=== PATIENT | female | born 1975 | race Caucasian/White ===

== ENCOUNTER 2016-07-03 11:34 | Emergency (ER) | payer OTHER ==
[2016-07-03 11:43] VITALS: BP 113/62; PULSE 72; TEMP 97.8; BMI 29.5
[2016-07-03] MEDS ORDERED: predniSONE 20 MG TABLET (UD) ONE (12:33)
[2016-07-03] MEDS ORDERED: predniSONE 20 MG TABLET (UD) PO ONE (12:33)
[2016-07-03] MEDS ORDERED: ALBUTEROL SO4 2.5/IPRATROPIUM 0.5 INH SOL 3 ML VIAL.NEB. NEB ONE ×2 (12:33)
--- NOTE | 2016-07-03 13:06 | PDOC ---
History of Present Illness - General Chief Complaint: Asthma Stated Complaint: SOB (ASTHMA) Time Seen by Provider: 07/03/16 12:00 History Source: Patient Exam Limitations: No Limitations - History of Present Illness Initial Comments: 07/03/16 13:03 CC asthma attack x 2-3 days Timing/Duration: reports: just prior to arrival Severity: reports: mild Modifying Factors: improves with: albuterol inhaler, albuterol nebulizer Associated Symptoms: denies: fever/chills, muscle aches, shortness of breath Past History - Past Medical History Allergies/Adverse Reactions: Allergies Allergy/AdvReac Type Severity Reaction Status Date / Time Penicillins Allergy Hives Verified 07/03/16 11:43 Home Medications: Ambulatory Orders NK [No Known Home Medication] 07/03/16 Anemia: No Asthma: Yes Cancer: No Cardiac Disorders: No CVA: No COPD: No CHF: No Dementia: No Diabetes: No GI Disorders: No Disorders: No HTN: No Hypercholesterolemia: No Liver Disease: No Psychiatric Problems: Yes Seizures: No Thyroid Disease: No - Surgical History Abdominal Surgery: No Appendectomy: No Cardiac Surgery: No Cholecystectomy: No Lung Surgery: No Neurologic Surgery: No Orthopedic Surgery: Yes (L WRIST GANGLION CYSTECTOMY) - Immunization History Immunization Up to Date: Yes - Psycho/Social/Smoking Cessation Hx Anxiety: No Suicidal Ideation: No Smoking History: Current some day smoker Have you smoked in the past 12 months: Yes Number of Cigarettes Smoked Daily: 2 If you are a former smoker, when did you quit?: 10/31/13 Information on smoking cessation initiated: No 'Breaking Loose' booklet given: 01/03/14 Hx Alcohol Use: No Drug/Substance Use Hx: No Substance Use Type: None Hx Substance Use Treatment: No Review of Systems - Review of Systems Constitutional: No: Symptoms Reported, Fever, Loss of Appetite, Malaise HEENTM: Yes: Nose Pain, Nose Congestion. No: Symptoms Reported, Hearing Loss, Throat Swelling Respiratory: Yes: Wheezing. No: Symptoms reported, Cough Cardiac (ROS): No: Symptoms Reported ABD/GI: No: Symptoms Reported *Physical Exam - Vital Signs Last Vital Signs Temp Pulse Resp BP Pulse Ox 97.8 F 72 20 113/62 97 07/03/16 11:41 07/03/16 11:41 07/03/16 11:41 07/03/16 11:41 07/03/16 11:41 - Physical Exam General Appearance: Yes: Appropriately Dressed. No: Apparent Distress HEENT: positive: TMs Normal, Pharynx Normal, Nasal Congestion, Rhinorrhea. negative: Tonsillar Exudate, Tonsillar Erythema, TM Bulging, TM Dull, TM Erythema Neck: positive: Supple, Lymphadenopathy (R), Lymphadenopathy (L). negative: Tender, Rigid Respiratory/Chest: positive: Lungs Clear, Wheezing Cardiovascular: positive: Regular Rhythm, Regular Rate. negative: Murmur ED Treatment Course - Medications Given in the ED: ED Medications Discontinued Medications Generic Name Dose Route Start Last Admin Trade Name Freq PRN Reason Stop Dose Admin Albuterol/Ipratropium 1 amp 07/03/16 12:33 07/03/16 12:36 Duoneb - NEB 07/03/16 12:34 1 amp ONCE ONE Administration Prednisone 60 mg 07/03/16 12:33 07/03/16 12:36 Deltasone - PO 07/03/16 12:34 60 mg ONCE ONE Administration Medical Decision Making - Medical Decision Making 07/03/16 13:05 asthma attack *DC/Admit/Observation/Transfer Diagnosis at time of Disposition: Exacerbation of asthma - Discharge Dispostion Disposition: HOME Condition at time of disposition: Stable Admit: No - Patient Instructions Additional Instructions: return for increased symptoms; see local MD next week
== END 2016-07-03 13:12 | disposition home or self-care (01) ==
LOC: JERFT 11:34
PROC: 3E0F7GC Introduction of Other Therapeutic Substance into Respiratory Tract, Via Natural or Artificial Opening (ICD-10-PCS; principal; 2016-07-03)
DX: J45.901 Unspecified asthma with (acute) exacerbation (principal); F99 Mental disorder, not otherwise specified; Z87.891 Personal history of nicotine dependence
CPT/HCPCS: 94640; 99281-25

== ENCOUNTER 2016-08-15 09:17 | Emergency (ER) | payer OTHER ==
[2016-08-15 09:21] VITALS: BP 114/72; PULSE 105; TEMP 97.9; BMI 29.5
[2016-08-15] MEDS ORDERED: ALBUTEROL SO4 2.5/IPRATROPIUM 0.5 INH SOL 3 ML VIAL.NEB. NEB ONE (09:40)
[2016-08-15] MEDS ORDERED: predniSONE 20 MG TABLET (UD) PO ONE (10:05)
--- NOTE | 2016-08-15 10:05 | PDOC ---
History of Present Illness - General Chief Complaint: Cold Symptoms Stated Complaint: SOB, COUGH,Asthma Time Seen by Provider: 08/15/16 09:20 History Source: Patient - History of Present Illness Timing/Duration: reports: other Associated Symptoms: reports: shortness of breath, wheezing. denies: cough Past History - Past Medical History Allergies/Adverse Reactions: Allergies Allergy/AdvReac Type Severity Reaction Status Date / Time Penicillins Allergy Hives Verified 08/15/16 09:22 Home Medications: Ambulatory Orders Albuterol Sulfate Inhaler - [Ventolin HFA Inhaler -] 2 inh PO Q4H #1 inh Lamotrigine [Lamictal -] 300 mg PO DAILY 08/14/16 [place] Carbonate [Eskalith -] 900 mg PO BID 08/14/16 Quetiapine Fumarate [Seroquel -] 400 mg PO HS 08/14/16 Sertraline HCl [Zoloft -] 200 mg PO DAILY 08/14/16 Prednisone [Deltasone -] 40 mg PO DAILY #6 tablet 08/15/16 Anemia: No Asthma: Yes Cancer: No Cardiac Disorders: No CVA: No COPD: No CHF: No Dementia: No Diabetes: No GI Disorders: No Disorders: No HTN: No Hypercholesterolemia: No Liver Disease: No Psychiatric Problems: Yes Seizures: No Thyroid Disease: No - Surgical History Abdominal Surgery: No Appendectomy: No Cardiac Surgery: No Cholecystectomy: No Lung Surgery: No Neurologic Surgery: No Orthopedic Surgery: Yes (L WRIST GANGLION CYSTECTOMY) - Immunization History Immunization Up to Date: Yes - Psycho/Social/Smoking Cessation Hx Anxiety: No Suicidal Ideation: No Smoking History: Never smoked Have you smoked in the past 12 months: Yes Number of Cigarettes Smoked Daily: 2 If you are a former smoker, when did you quit?: 10/31/13 Information on smoking cessation initiated: No 'Breaking Loose' booklet given: 08/14/16 Hx Alcohol Use: No Drug/Substance Use Hx: No Substance Use Type: None Hx Substance Use Treatment: No Review of Systems - Review of Systems Constitutional: No: Chills, Fever Respiratory: Yes: Shortness of Breath, Wheezing. No: Cough *Physical Exam - Vital Signs Last Vital Signs Temp Pulse Resp BP Pulse Ox 97.9 F 105 H 19 114/72 96 08/15/16 09:19 08/15/16 09:19 08/15/16 09:19 08/15/16 09:19 08/15/16 09:19 - Physical Exam General Appearance: Yes: Appropriately Dressed. No: Apparent Distress HEENT: positive: Normal Voice. negative: Scleral Icterus (R), Scleral Icterus ( L) Neck: positive: Supple Respiratory/Chest: positive: Wheezing. negative: Respiratory Distress Cardiovascular: positive: S1, S2, Tachycardia Integumentary: positive: Dry, Warm Neurologic: positive: Fully Oriented, Alert, Normal Mood/Affect Medical Decision Making - Medical Decision Making 08/15/16 10:02 40-year-old female history of bipolar, asthma with frequent exacerbations, uses pump and machine at home, multiple admissions and reports 2 intubations, last time 4 years ago, was seen in ED yesterday for asthma exacerbation but eloped after multiple rounds of nebs and steroids. Did not stay for rx for steroids. Patient did have labs drawn and CXR done that were negative. Patient returns today with persistent symptoms. States medications not helping at home. States she eloped last night because she had things to do. See exam Asthma flare Stable +wheezing on exam -nebs -pred -reassess 08/15/16 10:47 Patient reports some improvement but still wheezing on exam. Additional nebs and/or mag w/ possible obs admission offered to patient. The patient refuses at this time. Wants to go home on prednisone and follow up with her doctor tomorrow. 08/15/16 10:47 *DC/Admit/Observation/Transfer Diagnosis at time of Disposition: Asthma attack - Discharge Dispostion Disposition: HOME Condition at time of disposition: Improved - Prescriptions Prescriptions: Prednisone [Deltasone -] 40 mg PO DAILY #6 tablet - Referrals Referrals: Ceci Huston MD [Primary Care Provider] - - Patient Instructions Additional Instructions: Take medications as prescribed and follow-up with your doctor tomorrow. If symptoms worsen, return to ER immediately
[2016-08-15] MEDS ORDERED: ALBUTEROL SO4 2.5/IPRATROPIUM 0.5 INH SOL 3 ML VIAL.NEB. NEB SCH (10:15)
== END 2016-08-15 10:50 | disposition home or self-care (01) ==
LOC: JERFT 09:17
PROC: 3E0F7GC Introduction of Other Therapeutic Substance into Respiratory Tract, Via Natural or Artificial Opening (ICD-10-PCS; principal; 2016-08-15)
PROC: 3E0F7GC Introduction of Other Therapeutic Substance into Respiratory Tract, Via Natural or Artificial Opening (ICD-10-PCS; 2016-08-15)
DX: J45.901 Unspecified asthma with (acute) exacerbation (principal); F31.9 Bipolar disorder, unspecified
CPT/HCPCS: 99281-25

== ENCOUNTER 2016-12-08 08:55 | Emergency (ER) | payer OTHER ==
[2016-12-08 09:01] VITALS: BP 125/72; PULSE 82; TEMP 98.2; BMI 29.5
[2016-12-08] MEDS ORDERED: KETOROLAC TROMETHAMINE 60 MG/2 ML VIAL IM ONE (09:21)
--- NOTE | 2016-12-08 09:23 | PDOC ---
History of Present Illness - General Chief Complaint: Pain Stated Complaint: NECK PAIN Time Seen by Provider: 12/08/16 09:18 History Source: Patient Exam Limitations: No Limitations - History of Present Illness Initial Comments: 12/08/16 09:22 41 yr female with neck pain for 1 days, denies fever no trauma. Pt has history of disc disease in her neck. Pt denies numbness or tingling to the arms. Pt states she woke up with neck stiffness. Pt took no meds for pain. 12/08/16 11:23 Past History - Past Medical History Allergies/Adverse Reactions: Allergies Allergy/AdvReac Type Severity Reaction Status Date / Time Penicillins Allergy Hives Verified 12/08/16 08:57 Home Medications: Ambulatory Orders Lamotrigine [Lamictal -] 300 mg PO DAILY 08/14/16 [place] Carbonate [Eskalith -] 900 mg PO BID 08/14/16 Quetiapine Fumarate [Seroquel -] 400 mg PO HS 08/14/16 Sertraline HCl [Zoloft -] 200 mg PO DAILY 08/14/16 Diazepam [Valium] 5 mg PO Q8H PRN #15 tablet MDD 15mg 12/08/16 Naproxen [Naprosyn -] 500 mg PO BID PRN #14 tablet 12/08/16 Anemia: No Asthma: Yes Cancer: No Cardiac Disorders: No CVA: No COPD: No CHF: No Dementia: No Diabetes: No GI Disorders: No Disorders: No HTN: No Hypercholesterolemia: No Liver Disease: No Psychiatric Problems: Yes (ptsd,bipolar,DID ( DISSOCIATIVE IDENTITY D/O)) Seizures: No Thyroid Disease: No - Surgical History Abdominal Surgery: Yes (tubal ligation,ovary removal and mass) Appendectomy: No Cardiac Surgery: No Cholecystectomy: No Lung Surgery: No Neurologic Surgery: No Orthopedic Surgery: Yes (L WRIST GANGLION CYSTECTOMY) - Immunization History Immunization Up to Date: Yes - Psycho/Social/Smoking Cessation Hx Anxiety: No Suicidal Ideation: No Smoking History: Current every day smoker Have you smoked in the past 12 months: Yes Number of Cigarettes Smoked Daily: 20 If you are a former smoker, when did you quit?: 10/31/13 Information on smoking cessation initiated: Yes 'Breaking Loose' booklet given: 12/08/16 Hx Alcohol Use: No Drug/Substance Use Hx: No Substance Use Type: None Hx Substance Use Treatment: No Review of Systems - Review of Systems Able to Perform ROS?: Yes Is the patient limited Persian proficient: No Constitutional: No: Symptoms Reported HEENTM: No: Symptoms Reported Respiratory: No: Symptoms reported Cardiac (ROS): No: Symptoms Reported ABD/GI: No: Symptoms Reported : No: Symptoms Reported Musculoskeletal: Yes: Symptoms Reported, Neck Pain *Physical Exam - Vital Signs Last Vital Signs Temp Pulse Resp BP Pulse Ox 98.2 F 82 18 125/72 100 12/08/16 08:57 12/08/16 08:57 12/08/16 08:57 12/08/16 08:57 12/08/16 08:57 - Physical Exam General Appearance: Yes: Nourished, Appropriately Dressed HEENT: positive: EOMI, MANAV, Normal ENT Inspection, TMs Normal, Pharynx Normal Neck: positive: Supple, Decreased range of motion, Tender lateral. negative: Lymphadenopathy (R), Lymphadenopathy (L), Rigidity, Tender midline Respiratory/Chest: positive: Lungs Clear, Normal Breath Sounds Cardiovascular: positive: Regular Rhythm, Regular Rate Gastrointestinal/Abdominal: positive: Normal Bowel Sounds, Soft Extremity: positive: Normal Capillary Refill, Normal Inspection, Normal Range of Motion, Other (FROM bilateral arms no weakness). negative: Tender Integumentary: positive: Normal Color, Dry, Warm Neurologic: positive: Fully Oriented, Alert, Normal Mood/Affect, Normal Response , Motor Strength 5/5 Medical Decision Making - Medical Decision Making 12/08/16 11:24 cc: acute on chronic neck pain laterally woke up with this (I have reviewed EMR and imaging studies ) will give valium and naprosyn, will give toradol now pt agrees with plan is asking for a neurologist to follow up with. pt did not drive here will give valium now pt agrees with plan and the follow up plan. *DC/Admit/Observation/Transfer Diagnosis at time of Disposition: Neck muscle spasm - Discharge Dispostion Disposition: HOME Condition at time of disposition: Improved - Prescriptions Prescriptions: Naproxen [Naprosyn -] 500 mg PO BID PRN #14 tablet PRN Reason: Pain Diazepam [Valium] 5 mg PO Q8H PRN #15 tablet MDD 15mg PRN Reason: Muscle Spasms - Referrals Referrals: Ceci Huston MD [Primary Care Provider] - Momo Robbins MD [Staff Physician] - - Patient Instructions Additional Instructions: follow with the neurologist take the medication as prescribed DO NOT DRIVE, OPERATE MACHINERY OR DRINK ALCOHOL WHILE TAKING VALIUM avoid texting, typing anything that worsens the pain in your neck apply warm compresses, heating pad, lie flat without a pillow in your bed this can help with relieving spasm return if worse
[2016-12-08] MEDS ORDERED: KETOROLAC TROMETHAMINE 60 MG/2 ML VIAL ONE (09:25)
[2016-12-08] MEDS ORDERED: diazePAM 5 MG TABLET PO ONE (09:33)
[2016-12-08] MEDS ORDERED: diazePAM 5 MG TABLET ONE (09:38)
== END 2016-12-08 09:44 | disposition home or self-care (01) ==
LOC: JERFT 08:55
PROC: 3E0233Z Introduction of Anti-inflammatory into Muscle, Percutaneous Approach (ICD-10-PCS; principal; 2016-12-08)
DX: M50.30 Other cervical disc degeneration, unspecified cervical region (principal); M62.838 Other muscle spasm; F43.10 Post-traumatic stress disorder, unspecified; F31.9 Bipolar disorder, unspecified; F44.81 Dissociative identity disorder
CPT/HCPCS: 96372; 99281-25

== ENCOUNTER 2017-03-21 08:54 | Emergency (ER) | payer OTHER ==
[2017-03-21 09:00] VITALS: BP 135/78; PULSE 96; TEMP 98.7; BMI 29.5
[2017-03-21] MEDS ORDERED: ALBUTEROL SO4 2.5/IPRATROPIUM 0.5 INH SOL 3 ML VIAL.NEB. NEB ONE ×2 (09:31→09:33)
[2017-03-21] MEDS ORDERED: KETOROLAC TROMETHAMINE 60 MG/2 ML VIAL IM ONE (09:31)
[2017-03-21] MEDS ORDERED: KETOROLAC TROMETHAMINE 60 MG/2 ML VIAL ONE (09:33)
--- NOTE | 2017-03-21 10:40 | PDOC ---
History of Present Illness - General Chief Complaint: Back Pain Stated Complaint: BACK PAIN, SOB Time Seen by Provider: 03/21/17 09:16 History Source: Patient Exam Limitations: No Limitations - History of Present Illness Initial Comments: 03/21/17 18:09 CHIEF COMPLAINT: Lower back pain and wheezing since last night HISTORY OF PRESENT ILLNESS: 41-year-old female, history of asthma currently takes albuterol however ran out presents to the emergency department with wheezing also complaining of generalized lower back pain. Nonradiating pain, no neurosensory deficits, no bowel or bladder difficulty incontinence or urinary retention, no saddle anesthesia, no footdrop. No history of IVDU or history of cancer. Patient reports that back pain started after squatting 325 lbs yesterday. Normally benches 279 and felt that she can lift more today had no difficulty doing so however developed pain to generalized lower back afterwards. REVIEW OF SYSTEMS: GENERAL: Afebrile, denies any weakness RESPIRATORY: No cough, wheezing, or hemoptysis. CARDIAC: No chest pain or shortness of breath MUSCULOSKELETAL: Pain to generalized lower back. No point tenderness. Pain worse on right than left. SKIN : No erythema, no bruising, no deformity. GI/: Denies any abdominal pain, no urinary difficulty, incontinence or urinary retention. RECTAL: Denies any difficulty this A.m. NEUROLOGICAL: Denies any numbness or tingling. No neurosensory deficits. PHYSICAL EXAM: GENERAL: The patient is awake, alert, and fully oriented, in no acute distress. RESPIRATORY: Lungs clear bilaterally, no rhonchi, wheezing cleared with cough CARDIAC: S1-S2 audible, no murmur rub or gallop MUSCULOSKELETAL: Pain to generalized lower back, nonradiating, no tingling or sensory deficit. Less than 2 second cap refill, +4 popliteal and pedal pulses. GI/: Abdomen soft, nontender, nondistended. No rebound tenderness. No masses palpable. MUSCULOSKELETAL: No spinal point tenderness. Normal reflexive and no deficits to sensation or strength. RECTAL: Normal Rectal Tone. SKIN: Warm, Dry, normal turgor, no erythema, no edema no bruising. Past History - Past Medical History Allergies/Adverse Reactions: Allergies Allergy/AdvReac Type Severity Reaction Status Date / Time Penicillins Allergy Hives Verified 03/21/17 08:55 Home Medications: Ambulatory Orders Lamotrigine [Lamictal -] 300 mg PO DAILY 08/14/16 [place] Carbonate [Eskalith -] 900 mg PO BID 08/14/16 Quetiapine Fumarate [Seroquel -] 400 mg PO HS 08/14/16 Sertraline HCl [Zoloft -] 200 mg PO DAILY 08/14/16 Albuterol Sulfate Inhaler - [Ventolin HFA Inhaler -] 1 - 2 inh PO Q4H #1 inhaler 03/21/17 Cyclobenzaprine HCl [Flexeril 10 mg] 10 mg PO BID PRN #20 tablet MDD 2 03/21/17 Ibuprofen [Motrin -] 600 mg PO QID #28 tablet 03/21/17 Anemia: No Asthma: Yes Cancer: No Cardiac Disorders: No CVA: No COPD: No CHF: No Dementia: No Diabetes: No GI Disorders: No Disorders: No HTN: No Hypercholesterolemia: No Liver Disease: No Psychiatric Problems: Yes (ptsd,bipolar,DID ( DISSOCIATIVE IDENTITY D/O)) Seizures: No Thyroid Disease: No - Surgical History Abdominal Surgery: Yes (tubal ligation,ovary removal and mass) Appendectomy: No Cardiac Surgery: No Cholecystectomy: No Lung Surgery: No Neurologic Surgery: No Orthopedic Surgery: Yes (L WRIST GANGLION CYSTECTOMY) - Immunization History Immunization Up to Date: Yes - Suicide/Smoking/Psychosocial Hx Smoking History: Never smoked Have you smoked in the past 12 months: No Number of Cigarettes Smoked Daily: 20 If you are a former smoker, when did you quit?: 10/31/13 Information on smoking cessation initiated: No 'Breaking Loose' booklet given: 12/08/16 Hx Alcohol Use: No Drug/Substance Use Hx: No Substance Use Type: None Hx Substance Use Treatment: No *Physical Exam - Vital Signs Last Vital Signs Temp Pulse Resp BP Pulse Ox 98.7 F 96 H 20 135/78 96 03/21/17 08:54 03/21/17 08:54 03/21/17 08:54 03/21/17 08:54 03/21/17 08:54 ED Treatment Course - Medications Given in the ED: ED Medications Discontinued Medications Generic Name Dose Route Start Last Admin Trade Name Freq PRN Reason Stop Dose Admin Albuterol/Ipratropium 1 amp 03/21/17 09:31 03/21/17 09:42 Duoneb - NEB 03/21/17 09:32 1 amp ONCE ONE Administration Ketorolac Tromethamine 60 mg 03/21/17 09:31 03/21/17 09:42 Toradol Injection - IM 03/21/17 09:32 60 mg ONCE ONE Administration Medical Decision Making - Medical Decision Making 03/21/17 18:11 A/P: Patient here for evaluation of lower back pain and wheezing. Patient given treatment, Combivent given wheezing cleared. Patient with no radiating pain, no neurological deficits. Toradol 60 mg IM given with good result patient reports that she has no pain after medication. Patient discharged on Ventolin, Flexeril and Motrin follow-up with PMD if pain persists I discussed the physical exam findings, ancillary test results and final diagnoses with the patient. I answered all of the patient's questions. The patient was satisfied with the care received and felt comfortable with the discharge plan and treatment plan. The patient will call to arrange follow-up and will return to the Emergency Department with any new, persistent or worsening symptoms. *DC/Admit/Observation/Transfer Diagnosis at time of Disposition: Asthma Qualifiers: Asthma severity: mild Asthma persistence: intermittent Asthma complication type : uncomplicated Qualified Code(s): J45.20 - Mild intermittent asthma, uncomplicated Back pain Qualifiers: Back pain location: low back pain Chronicity: acute Back pain laterality: left Sciatica presence: without sciatica Qualified Code(s): M54.5 - Low back pain - Discharge Dispostion Disposition: HOME Condition at time of disposition: Good Admit: No - Prescriptions Prescriptions: Cyclobenzaprine HCl [Flexeril 10 mg] 10 mg PO BID PRN #20 tablet MDD 2 PRN Reason: Pain Ibuprofen [Motrin -] 600 mg PO QID #28 tablet Albuterol Sulfate Inhaler - [Ventolin HFA Inhaler -] 1 - 2 inh PO Q4H #1 inhaler - Referrals Referrals: Ceci Huston MD [Primary Care Provider] - - Patient Instructions Additional Instructions: 1. Please return to the emergency department with any numbness, tingling, weakness, numbness or tingling to groin or legs, or loss of bowel or bladder function. 2. Use pain medication as ordered. 3. Please is to followup in the office of Dr. Freed for evaluation within a week if no improvement. 4. Ice or heat 5. Refrain from lifting anything above 10 pounds, until pain resolved. - Post Discharge Activity Forms/Work/School Notes: Back to Work
== END 2017-03-21 10:44 | disposition home or self-care (01) ==
LOC: SUPCPDRO 08:54 → JER 08:54 → JERFT 08:54
PROC: 3E0233Z Introduction of Anti-inflammatory into Muscle, Percutaneous Approach (ICD-10-PCS; principal; 2017-03-21)
PROC: 3E0F7GC Introduction of Other Therapeutic Substance into Respiratory Tract, Via Natural or Artificial Opening (ICD-10-PCS; 2017-03-21)
DX: J45.20 Mild intermittent asthma, uncomplicated (principal)
CPT/HCPCS: 94640; 96372; 99281-25

== ENCOUNTER 2017-03-26 04:45 | Emergency (ER) | payer OTHER ==
--- NOTE | 2017-03-26 05:06 | PDOC ---
History of Present Illness - General History Source: Patient Exam Limitations: No Limitations - History of Present Illness Initial Comments: 03/26/17 05:07 Pt is a 41 yo F with PMHx of Asthma who presents the ED with complaints of back pain and LE numbness for the past 2 days. Patient was seen in the ED for back pain on and was discharged with pain medications (Motrin, Flexeril). Patient's pain progressively worsened so she reports doubling her pain medications. Patient reports no relief since discharge. Patient now reports numbness from her L lower back radiating down to her L leg. Patient denies any weakness, tingling or bowel/urine incontinence. <Opal Grubbs - Last Filed: 03/26/17 05:07> - General History Source: Patient <Akhil Noland - Last Filed: 03/26/17 19:35> - General Chief Complaint: Back Pain Stated Complaint: REVISIT- BACK PAIN Time Seen by Provider: 03/26/17 05:02 Past History <Opal Grubbs - Last Filed: 03/26/17 05:07> - Past Medical History Anemia: No Asthma: Yes Cancer: No Cardiac Disorders: No CVA: No COPD: No CHF: No Dementia: No Diabetes: No GI Disorders: No Disorders: No HTN: No Hypercholesterolemia: No Liver Disease: No Psychiatric Problems: Yes (ptsd,bipolar,DID ( DISSOCIATIVE IDENTITY D/O)) Seizures: No Thyroid Disease: No - Surgical History Abdominal Surgery: Yes (tubal ligation,ovary removal and mass) Appendectomy: No Cardiac Surgery: No Cholecystectomy: No Lung Surgery: No Neurologic Surgery: No Orthopedic Surgery: Yes (L WRIST GANGLION CYSTECTOMY) - Immunization History Immunization Up to Date: Yes - Suicide/Smoking/Psychosocial Hx Smoking History: Never smoked Have you smoked in the past 12 months: Yes Number of Cigarettes Smoked Daily: 20 If you are a former smoker, when did you quit?: 10/31/13 Information on smoking cessation initiated: No 'Breaking Loose' booklet given: 12/08/16 Hx Alcohol Use: No Drug/Substance Use Hx: No Substance Use Type: None Hx Substance Use Treatment: No <Akhil Noland - Last Filed: 03/26/17 19:35> - Past Medical History Allergies/Adverse Reactions: Allergies Allergy/AdvReac Type Severity Reaction Status Date / Time Penicillins Allergy Hives Verified 03/26/17 05:06 Home Medications: Ambulatory Orders Lamotrigine [Lamictal -] 300 mg PO DAILY 08/14/16 [place] Carbonate [Eskalith -] 900 mg PO BID 08/14/16 Quetiapine Fumarate [Seroquel -] 400 mg PO HS 08/14/16 Sertraline HCl [Zoloft -] 200 mg PO DAILY 08/14/16 Albuterol Sulfate Inhaler - [Ventolin HFA Inhaler -] 1 - 2 inh PO Q4H #1 inhaler 03/21/17 Cyclobenzaprine HCl [Flexeril 10 mg] 10 mg PO BID PRN #20 tablet MDD 2 03/21/17 Ibuprofen [Motrin -] 600 mg PO QID #28 tablet 03/21/17 Review of Systems - Review of Systems Able to Perform ROS?: Yes Comments:: 03/26/17 05:14 CONSTITUTIONAL: Absent: fever, chills, diaphoresis, generalized weakness, malaise, loss of appetite HEENT: Absent: rhinorrhea, nasal congestion, throat pain, throat swelling, difficulty swallowing, mouth swelling, ear pain, eye pain, visual Changes CARDIOVASCULAR: Absent: chest pain, syncope, palpitations, irregular heart rate, lightheadedness , peripheral edema RESPIRATORY: Absent: cough, shortness of breath, dyspnea with exertion, orthopnea, wheezing, stridor, hemoptysis GASTROINTESTINAL: Absent: abdominal pain, abdominal distension, nausea, vomiting, diarrhea, constipation, melena, hematochezia GENITOURINARY: Absent: dysuria, frequency, urgency, hesitancy, hematuria, flank pain, genital pain MUSCULOSKELETAL: +back pain. Absent: myalgia, arthralgia, joint swelling SKIN: Absent: rash, itching, pallor HEMATOLOGIC/IMMUNOLOGIC: Absent: easy bleeding, easy bruising, lymphadenopathy, frequent infections ENDOCRINE: Absent: unexplained weight gain, unexplained weight loss, heat intolerance, cold intolerance NEUROLOGIC: Absent: headache, focal weakness or paresthesias, dizziness, unsteady gait, seizure, mental status changes, bladder or bowel incontinence PSYCHIATRIC: Absent: anxiety, depression, suicidal or homicidal ideation, hallucinations. <Opal Grubbs - Last Filed: 03/26/17 05:07> *Physical Exam - Vital Signs Last Vital Signs Temp Pulse Resp BP Pulse Ox 97.9 F 81 18 122/73 100 03/26/17 04:57 03/26/17 04:57 03/26/17 04:57 03/26/17 04:57 03/26/17 04:57 - Physical Exam Comments: 03/26/17 05:15 GENERAL: Well developed, well nourished. Awake and alert. In no acute distress. HEENT: Normocephalic, atraumatic. PERRLA, EOMI. No conjunctival pallor. Sclerae are non -icteric. Moist mucous membranes. Oropharynx is clear. NECK: Supple. Full ROM. No JVD. Carotid pulses 2+ and symmetric, without bruits. No thyromegaly. No lymphadenopathy. CARDIOVASCULAR: Regular rate and rhythm. No murmurs, rubs, or gallops. Distal pulses are 2+ and symmetric. PULMONARY: No evidence of respiratory distress. Lungs clear to auscultation bilaterally. No wheezing, rales or rhonchi. ABDOMINAL: Soft. Non-tender. Non-distended. No rebound or guarding. No organomegaly. Normoactive bowel sounds. MUSCULOSKELETAL Normal range of motion at all joints. No bony deformities or tenderness. No CVA tenderness. EXTREMITIES: No cyanosis. No clubbing. No edema. No calf tenderness. SKIN: Warm and dry. Normal capillary refill. No rashes. No jaundice. NEUROLOGICAL: Alert, awake, appropriate. Cranial nerves 2-12 intact. No deficits to light touch and temperature in face, upper extremities and lower extremities. No motor deficits in the in face, upper extremities and lower extremities. Normoreflexic in the upper and lower extremities. Normal speech. Toes are downgoing bilaterally. Gait is normal without ataxia. PSYCHIATRIC: Cooperative. Good eye contact. Appropriate mood and affect. <Opal Grubbs - Last Filed: 03/26/17 05:07> - Vital Signs Last Vital Signs Temp Pulse Resp BP Pulse Ox 97.9 F 81 18 122/73 100 03/26/17 04:57 03/26/17 04:57 03/26/17 04:57 03/26/17 04:57 03/26/17 04:57 <Akhil Noland - Last Filed: 03/26/17 19:35> Medical Decision Making - Medical Decision Making 03/26/17 19:34 Dr. Noland: The scribe's documentation has been prepared under my direction and personally reviewed by me in its entirery. I confirm that the note above accurately reflects all work, treatment, procedures, and medical decision making performed by me. <Akhil Noland - Last Filed: 03/26/17 19:35> *DC/Admit/Observation/Transfer - Attestations Scribe Attestion: 03/26/17 05:15 Documentation prepared by Opal Grubbs, acting as pediatric medical assistant for Akhil Noland DO. <Opal Grubbs - Last Filed: 03/26/17 05:07> - Discharge Dispostion Admit: No <Akhil Noland - Last Filed: 03/26/17 19:35> Diagnosis at time of Disposition: Back pain - Discharge Dispostion Disposition: HOME Condition at time of disposition: Stable - Referrals Referrals: Haroon Alvarez MD [Staff Physician] - Ceci Huston MD [Primary Care Provider] - - Patient Instructions Printed Discharge Instructions: DI for Low Back Pain Additional Instructions: Your CT lumbar spine was not officially read. Please call medical records for an official report. Please follow up with your PMD and the orthopedist. Please return to the ED with any further complaints.
[2017-03-26 05:13] VITALS: BP 122/73; PULSE 81; TEMP 97.9; BMI 29.5
--- NOTE | 2017-03-26 07:11 | PDOC ---
*Physical Exam - Vital Signs Last Vital Signs Temp Pulse Resp BP Pulse Ox 97.9 F 81 18 122/73 100 03/26/17 04:57 03/26/17 04:57 03/26/17 04:57 03/26/17 04:57 03/26/17 04:57 - Physical Exam Comments: 03/26/17 07:08 gen: aaox3, nad, ambulatory with a steady gait moving all extremities equally no signs of caude equina ED Treatment Course - ADDITIONAL ORDERS Additional order review: Laboratory Results 03/26/17 05:10 Urine HCG, Qual Negative - Medications Given in the ED: ED Medications Discontinued Medications Generic Name Dose Route Start Last Admin Trade Name Freq PRN Reason Stop Dose Admin Oxycodone/Acetaminophen 2 combo 03/26/17 05:07 03/26/17 05:44 Percocet 5/325 - PO 03/26/17 05:08 2 combo ONCE ONE Administration Medical Decision Making - Medical Decision Making 03/26/17 07:[address] lumbar spine for persistent lumbar pain 03/26/17 07:09 pt ambulated to the desk requesting to leave even though her CT lumbar spine is pending radiology read pt states she understands she is leaving without her imaging and states she will call with the results. Pt neuro intact and ambulatory in the ED. Recommended follow up with orthopedics for further eval. *DC/Admit/Observation/Transfer Diagnosis at time of Disposition: Back pain - Discharge Dispostion Disposition: HOME Condition at time of disposition: Stable Admit: No - Referrals Referrals: Ceci Huston MD [Primary Care Provider] - Haroon Alvarez MD [Staff Physician] - - Patient Instructions Printed Discharge Instructions: DI for Low Back Pain Additional Instructions: Your CT lumbar spine was not officially read. Please call medical records for an official report. Please follow up with your PMD and the orthopedist. Please return to the ED with any further complaints. - Post Discharge Activity
== END 2017-03-26 07:22 | disposition home or self-care (01) ==
LOC: JER 04:45
DX: M54.9 Dorsalgia, unspecified (principal); J45.909 Unspecified asthma, uncomplicated; F43.10 Post-traumatic stress disorder, unspecified; F31.9 Bipolar disorder, unspecified; Z87.891 Personal history of nicotine dependence
CPT/HCPCS: 72131-TC; 84703; 99282-25

== ENCOUNTER 2017-05-01 08:50 | Emergency (ER) | payer OTHER ==
[2017-05-01 08:55] VITALS: BP 123/73; PULSE 85; TEMP 98.6; BMI 29.5
[2017-05-01] MEDS ORDERED: ALBUTEROL SO4 2.5/IPRATROPIUM 0.5 INH SOL 3 ML VIAL.NEB. NEB ONE ×3 (09:05→09:44)
[2017-05-01] MEDS ORDERED: predniSONE 20 MG TABLET (UD) PO ONE (09:23)
[2017-05-01] MEDS ORDERED: predniSONE 20 MG TABLET (UD) ONE (09:39)
[2017-05-01] MEDS ORDERED: KETOROLAC TROMETHAMINE 60 MG/2 ML VIAL IM ONE (09:50)
[2017-05-01] MEDS ORDERED: KETOROLAC TROMETHAMINE 60 MG/2 ML VIAL ONE (09:53)
--- NOTE | 2017-05-01 10:30 | PDOC ---
History of Present Illness - General Chief Complaint: Asthma Stated Complaint: ASTHMA Time Seen by Provider: 05/01/17 09:12 History Source: Patient Exam Limitations: No Limitations - History of Present Illness Initial Comments: 05/01/17 10:27 c/o asthma for 4 days wheezing cough no fever no vomiting no sore throat. no history of intubations pt speaking clearly full sentences Past History - Past Medical History Allergies/Adverse Reactions: Allergies Allergy/AdvReac Type Severity Reaction Status Date / Time Penicillins Allergy Hives Verified 05/01/17 08:56 Home Medications: Ambulatory Orders Lamotrigine [Lamictal -] 300 mg PO DAILY 08/14/16 [place] Carbonate [Eskalith -] 900 mg PO BID 08/14/16 Quetiapine Fumarate [Seroquel -] 400 mg PO HS 08/14/16 Sertraline HCl [Zoloft -] 200 mg PO DAILY 08/14/16 Albuterol Sulfate Inhaler - [Ventolin HFA Inhaler -] 1 - 2 inh PO Q4H #1 inhaler 03/21/17 Cyclobenzaprine HCl [Flexeril 10 mg] 10 mg PO BID PRN #20 tablet MDD 2 03/21/17 Ibuprofen [Motrin -] 600 mg PO QID #28 tablet 03/21/17 Ibuprofen 800 mg PO TID #20 tablet 05/01/17 Prednisone [Deltasone -] 40 mg PO DAILY #10 tablet 05/01/17 Anemia: No Asthma: Yes Cancer: No Cardiac Disorders: No CVA: No COPD: No CHF: No DVT: No Dementia: No Diabetes: No GI Disorders: No Disorders: No HTN: No Hypercholesterolemia: No Liver Disease: No Psychiatric Problems: Yes (ptsd,bipolar,DID ( DISSOCIATIVE IDENTITY D/O)) Seizures: No Thyroid Disease: No - Surgical History Abdominal Surgery: Yes (tubal ligation,ovary removal and mass) Appendectomy: No Cardiac Surgery: No Cholecystectomy: No Lung Surgery: No Neurologic Surgery: No Orthopedic Surgery: Yes (L WRIST GANGLION CYSTECTOMY) - Immunization History Immunization Up to Date: Yes - Suicide/Smoking/Psychosocial Hx Smoking History: Never smoked Have you smoked in the past 12 months: Yes Number of Cigarettes Smoked Daily: 20 If you are a former smoker, when did you quit?: 10/31/13 Information on smoking cessation initiated: No 'Breaking Loose' booklet given: 12/08/16 Hx Alcohol Use: No Drug/Substance Use Hx: No Substance Use Type: None Hx Substance Use Treatment: No Respiratory Specific PMHX - Complaint Specific PMHX Bronchitis: Yes Review of Systems - Review of Systems Able to Perform ROS?: Yes Is the patient limited [place]i proficient: No Constitutional: No: Symptoms Reported HEENTM: Yes: See HPI Respiratory: Yes: See HPI, Cough Cardiac (ROS): No: Chest Pain *Physical Exam - Vital Signs Last Vital Signs Temp Pulse Resp BP Pulse Ox 98.6 F 85 19 123/73 98 05/01/17 08:52 05/01/17 08:52 05/01/17 08:52 05/01/17 08:52 05/01/17 08:52 - Physical Exam General Appearance: Yes: Nourished, Appropriately Dressed HEENT: positive: EOMI, MANAV, Normal ENT Inspection, TMs Normal, Pharynx Normal Neck: positive: Supple. negative: Lymphadenopathy (R), Lymphadenopathy (L) Respiratory/Chest: positive: Chest Tender, Rhonchi, Wheezing. negative: Respiratory Distress, Accessory Muscle Use Cardiovascular: positive: Regular Rhythm, Regular Rate Gastrointestinal/Abdominal: positive: Normal Bowel Sounds, Soft. negative: Tender Musculoskeletal: positive: Normal Inspection. negative: CVA Tenderness Extremity: positive: Normal Capillary Refill, Normal Inspection, Normal Range of Motion Integumentary: positive: Normal Color, Dry, Warm Neurologic: positive: Fully Oriented, Alert, Normal Mood/Affect, Normal Response , Motor Strength 5/5 ED Treatment Course - ADDITIONAL ORDERS Additional order review: Laboratory Results 05/01/17 09:22 Urine HCG, Qual Negative - Medications Given in the ED: ED Medications Discontinued Medications Generic Name Dose Route Start Last Admin Trade Name Chocoq PRN Reason Stop Dose Admin Albuterol/Ipratropium 1 amp 05/01/17 09:05 05/01/17 09:05 Duoneb - NEB 05/01/17 09:06 1 amp NOW ONE Administration Ketorolac Tromethamine 60 mg 05/01/17 09:50 05/01/17 09:59 Toradol Injection - IM 05/01/17 09:51 60 mg ONCE ONE Administration Prednisone 60 mg 05/01/17 09:23 05/01/17 09:48 Deltasone - PO 05/01/17 09:24 60 mg ONCE ONE Administration Progress Note - Progress Note Progress Note: pt improved, wheezing has decreased significantly, pt ate a sandwich feels much better will dc home with prednisone and ibuprofen for pain Medical Decision Making - Medical Decision Making 05/01/17 10:29 cc: cough wheezing chest tight will give nebulizers, prednsione and re-evaluate pt also c/o cracked right upper tooth asking for pain meds will give toradol *DC/Admit/Observation/Transfer Diagnosis at time of Disposition: Asthma Qualifiers: Asthma severity: moderate Asthma persistence: persistent Asthma complication type: uncomplicated Qualified Code(s): J45.40 - Moderate persistent asthma, uncomplicated - Discharge Dispostion Disposition: HOME Condition at time of disposition: Good - Prescriptions Prescriptions: Ibuprofen 800 mg PO TID #20 tablet Prednisone [Deltasone -] 40 mg PO DAILY #10 tablet - Referrals Referrals: Ceci Huston MD [Primary Care Provider] - Javier Choi MD [Staff Physician] - - Patient Instructions Printed Discharge Instructions: Asthma -- Adult Additional Instructions: drink pleanty of fluids to stay well hydrated next dose prednisone tomorrow morning use your nebulizer every 4hrs today take the ibuprofen 800mg every 6hrs for dental pain follow with for follow up care as your primary care doctor if you don' t have one picked out Return to ER if any worsening symptoms - Post Discharge Activity
[2017-05-01] MEDS: ALBUTEROL SO4 2.5/IPRATROPIUM 0.5 INH SOL 3 ML VIAL.NEB. NEB SCH (11:06)
== END 2017-05-01 11:37 | disposition home or self-care (01) ==
LOC: JERFT 08:50
PROC: 3E0F7GC Introduction of Other Therapeutic Substance into Respiratory Tract, Via Natural or Artificial Opening (ICD-10-PCS; principal; 2017-05-01)
PROC: 3E0233Z Introduction of Anti-inflammatory into Muscle, Percutaneous Approach (ICD-10-PCS; 2017-05-01)
DX: J40 Bronchitis, not specified as acute or chronic (principal); Z87.891 Personal history of nicotine dependence; F43.10 Post-traumatic stress disorder, unspecified
CPT/HCPCS: 84703; 99281-25

== ENCOUNTER 2017-10-13 12:41 | Emergency (ER) | payer OTHER ==
[2017-10-13 12:45] VITALS: BP 133/79; PULSE 87; TEMP 98.3; BMI 31.0
[2017-10-13] MEDS ORDERED: RABIES VACCINE (PCEC)/PF 2.5 UNIT/VIAL IM ONE (13:23)
[2017-10-13] MEDS ORDERED: DIPHTH,PERTUSS(ACELL),TET 0.5 ML DISP.SYRIN IM ONE (13:23)
[2017-10-13] MEDS ORDERED: RABIES IMMUNE GLOBULIN 300 UNITS/2 ML VIAL IM ONE (13:23)
[2017-10-13] MEDS ORDERED: KETOROLAC TROMETHAMINE 60 MG/2 ML VIAL IM ONE (13:23)
[2017-10-13] MEDS ORDERED: RABIES IMMUNE GLOBULIN 300 UNITS/2 ML VIAL ONE (13:27)
[2017-10-13] MEDS ORDERED: KETOROLAC TROMETHAMINE 60 MG/2 ML VIAL ONE (13:27)
--- NOTE | 2017-10-13 13:30 | PDOC ---
History of Present Illness - General Chief Complaint: Bite Stated Complaint: BITE Time Seen by Provider: 10/13/17 12:53 History Source: Patient - History of Present Illness Occurred: reports: this morning Severity: Yes: severe Lower Extremity Pain Location: right: leg Method of Injury: Yes: other Past History - Past Medical History Allergies/Adverse Reactions: Allergies Allergy/AdvReac Type Severity Reaction Status Date / Time Penicillins Allergy Hives Verified 10/13/17 12:42 Home Medications: Ambulatory Orders Lamotrigine [Lamictal -] 300 mg PO DAILY 08/14/16 [place] Carbonate [Eskalith -] 900 mg PO BID 08/14/16 Quetiapine Fumarate [Seroquel -] 400 mg PO HS 08/14/16 Sertraline HCl [Zoloft -] 200 mg PO DAILY 08/14/16 Clindamycin [Cleocin -] 300 mg PO Q6HPO #20 capsule 10/13/17 Doxycycline Hyclate 100 mg PO BID #10 tablet 10/13/17 Ibuprofen [Motrin -] 2 tab PO Q6H #30 tablet 10/13/17 Anemia: No Asthma: Yes Cancer: No Cardiac Disorders: No CVA: No COPD: No CHF: No DVT: No Dementia: No Diabetes: No GI Disorders: No Disorders: No HTN: No Hypercholesterolemia: No Liver Disease: No Psychiatric Problems: Yes (ptsd,bipolar,DID ( DISSOCIATIVE IDENTITY D/O)) Seizures: No Thyroid Disease: No - Surgical History Abdominal Surgery: Yes (tubal ligation,ovary removal and mass) Appendectomy: No Cardiac Surgery: No Cholecystectomy: No Lung Surgery: No Neurologic Surgery: No Orthopedic Surgery: Yes (L WRIST GANGLION CYSTECTOMY) - Immunization History Immunization Up to Date: Yes - Suicide/Smoking/Psychosocial Hx Smoking History: Current every day smoker Have you smoked in the past 12 months: Yes Number of Cigarettes Smoked Daily: 7 If you are a former smoker, when did you quit?: 10/31/13 Information on smoking cessation initiated: Yes 'Breaking Loose' booklet given: 10/13/17 Hx Alcohol Use: No Drug/Substance Use Hx: No Substance Use Type: None Hx Substance Use Treatment: No Review of Systems - Review of Systems Constitutional: No: Chills, Fever *Physical Exam - Vital Signs Last Vital Signs Temp Pulse Resp BP Pulse Ox 98.3 F 87 18 133/79 100 10/13/17 12:42 10/13/17 12:42 10/13/17 12:42 10/13/17 12:42 10/13/17 12:42 - Physical Exam General Appearance: Yes: Appropriately Dressed. No: Apparent Distress HEENT: positive: Normal Voice Neck: positive: Supple Respiratory/Chest: negative: Respiratory Distress Extremity: positive: Other (multiple contusions, abrasions to calf/leg of RLE) Integumentary: positive: Dry, Warm Neurologic: positive: Fully Oriented, Alert, Normal Mood/Affect Medical Decision Making - Medical Decision Making 10/13/17 13:25 42 yo F, no sig hx, presents with animal bite to right lower extremity. Patient reports that while in "a [place]odega" this am, the client service executive's cat attacked her while she was in line paying for her groceries. States she was wearing jeans and cat jumped on her right leg and began scratching and biting leg. [facility] store client service executive then informed her that cat was a stray recently and does not have any of his shots as far as client service executive knows. States client service executive did not intervene as he stated "I'm too afraid". See exam Cat bite from stray cat this am Multiple contusions/abrasion to RLE -pain control -tetanus -local wound care -rabies post exposure prophylaxis -abx (pen allergic of note) -wound check in 48 hrs 10/13/17 13:35 10/13/17 14:51 Pt s/p local wound care w/ betadine soak and dressing. Was unable to tolerate rabies immunoglobulin vaccine around site of wound, instead injected immunoglobulin in gluteus bilaterally, careful to avoid sciatic nerve. Status post rabies vaccine and tetanus. Will dc with Doxy (covers p. multocida) and Clinda (covers anerobes) given pen allergy. Patient given instructions to return to ER for subsequent rabies vaccine. Reasons to return to ER sooner discussed with patient *DC/Admit/Observation/Transfer Diagnosis at time of Disposition: Cat bite Qualifiers: Encounter type: initial encounter Qualified Code(s): W55.01XA - Bitten by cat, initial encounter - Discharge Dispostion Disposition: HOME Condition at time of disposition: Good - Prescriptions Prescriptions: Clindamycin [Cleocin -] 300 mg PO Q6HPO #20 capsule Doxycycline Hyclate 100 mg PO BID #10 tablet Ibuprofen [Motrin -] 2 tab PO Q6H #30 tablet - Referrals - Patient Instructions Printed Discharge Instructions: DI for Animal Bites Additional Instructions: Apply bacitracin to wounds daily and keep clean and covered until new tissue forms. Take antibiotics as prescribed to prevent infection. Return to ER for worsening of symptoms. You were given rabies vaccine (day 0) and immunoglobulin today. You will need to return to ED on subsequent visits for additional 3 vaccines. The next visit for your vaccine will be on October 16 (day 3), October 20 (day 7) and October 27 (day 14) - Post Discharge Activity
[2017-10-13] MEDS ORDERED: IBUPROFEN 400 MG TABLET (FP) PO ONE ×2 (13:50)
== END 2017-10-13 15:29 | disposition home or self-care (01) ==
LOC: JERFT 12:41
PROC: 3E0234Z Introduction of Serum, Toxoid and Vaccine into Muscle, Percutaneous Approach (ICD-10-PCS; principal; 2017-10-13)
PROC: 3E0234Z Introduction of Serum, Toxoid and Vaccine into Muscle, Percutaneous Approach (ICD-10-PCS; 2017-10-13)
PROC: 3E0234Z Introduction of Serum, Toxoid and Vaccine into Muscle, Percutaneous Approach (ICD-10-PCS; 2017-10-13)
DX: S81.851A Open bite, right lower leg, initial encounter (principal); W55.01XA Bitten by cat, initial encounter; Y93.89 Activity, other specified; Y92.512 Supermarket, store or market as the place of occurrence of the external cause; Y99.8 Other external cause status; J45.909 Unspecified asthma, uncomplicated; F43.10 Post-traumatic stress disorder, unspecified; F31.9 Bipolar disorder, unspecified; F44.81 Dissociative identity disorder
CPT/HCPCS: 90375; 90471; 90675; 90715; 96372; 99282-25

== ENCOUNTER 2017-10-16 12:50 | Emergency (ER) | payer OTHER ==
[2017-10-16 13:06] VITALS: BP 125/73; PULSE 82; BMI 29.5
[2017-10-16] MEDS ORDERED: RABIES VACCINE (PCEC)/PF 2.5 UNIT/VIAL IM ONE (13:43)
--- NOTE | 2017-10-16 13:57 | PDOC ---
History of Present Illness - General Chief Complaint: Revisit,Rabies Injection Stated Complaint: FOLLOW-UP/ INJECTION Time Seen by Provider: 10/16/17 13:28 History Source: Patient Exam Limitations: No Limitations - History of Present Illness Initial Comments: 10/16/17 13:56 42-year-old female presents the ED for second rabies vaccination. Patient was scratched and bitten by a cat at a local store with unknown vaccination history. Patient was given her first vaccination along with immunoglobulin. patient denies swelling redness or drainage from the sites.. Timing/Duration: reports: just prior to arrival Severity: Yes: mild Location: reports: extremities Respiratory Risk Factors: reports: other Associated Symptoms: reports: other Past History - Travel Traveled outside of the country in the last 30 days: No - Past Medical History Allergies/Adverse Reactions: Allergies Allergy/AdvReac Type Severity Reaction Status Date / Time Penicillins Allergy Hives Verified 10/16/17 13:02 Home Medications: Ambulatory Orders Lamotrigine [Lamictal -] 300 mg PO DAILY 08/14/16 [place] Carbonate [Eskalith -] 900 mg PO BID 08/14/16 Quetiapine Fumarate [Seroquel -] 400 mg PO HS 08/14/16 Sertraline HCl [Zoloft -] 200 mg PO DAILY 08/14/16 Clindamycin [Cleocin -] 300 mg PO Q6HPO #20 capsule 10/13/17 Doxycycline Hyclate 100 mg PO BID #10 tablet 10/13/17 Ibuprofen [Motrin -] 2 tab PO Q6H #30 tablet 10/13/17 Anemia: No Asthma: Yes Cancer: No Cardiac Disorders: No CVA: No COPD: No CHF: No DVT: No Dementia: No Diabetes: No GI Disorders: No Disorders: No HTN: No Hypercholesterolemia: No Liver Disease: No Psychiatric Problems: Yes (ptsd,bipolar,DID ( DISSOCIATIVE IDENTITY D/O)) Seizures: No Thyroid Disease: No - Surgical History Abdominal Surgery: Yes (tubal ligation,ovary removal and mass) Appendectomy: No Cardiac Surgery: No Cholecystectomy: No Lung Surgery: No Neurologic Surgery: No Orthopedic Surgery: Yes (L WRIST GANGLION CYSTECTOMY) - Immunization History Immunization Up to Date: Yes - Suicide/Smoking/Psychosocial Hx Smoking History: Current every day smoker Have you smoked in the past 12 months: Yes Number of Cigarettes Smoked Daily: 4 If you are a former smoker, when did you quit?: 10/31/13 Information on smoking cessation initiated: Yes 'Breaking Loose' booklet given: 10/16/17 Hx Alcohol Use: No Drug/Substance Use Hx: No Substance Use Type: None Hx Substance Use Treatment: No Patient Lives Alone: No Review of Systems - Review of Systems Able to Perform ROS?: No Constitutional: No: Symptoms Reported Musculoskeletal: No: Symptoms Reported Integumentary: Yes: See HPI Neurological: No: Symptoms reported *Physical Exam - Vital Signs Last Vital Signs Temp Pulse Resp BP Pulse Ox 82 20 125/73 99 10/16/17 13:02 10/16/17 13:02 10/16/17 13:02 10/16/17 13:02 - Physical Exam General Appearance: Yes: Nourished, Appropriately Dressed. No: Apparent Distress Integumentary: positive: Ecchymosis (with superficial abrasions to lateral aspect of right lower leg) Neurologic: positive: Motor Strength 5/5 (ambulatory) ED Treatment Course - Medications Given in the ED: ED Medications Discontinued Medications Generic Name Dose Route Start Last Admin Trade Name Freq PRN Reason Stop Dose Admin Rabies Vaccine 2.5 unit 10/16/17 13:43 10/16/17 13:44 [place] Rabies Vaccine IM 10/16/17 13:44 2.5 unit .ONCE ONE Administration Medical Decision Making - Medical Decision Making 10/16/17 14:02 Patient here for her second rabies vaccine. Patient has no complaints presently. Vaccination given in her left deltoid. *DC/Admit/Observation/Transfer Diagnosis at time of Disposition: Need for rabies vaccination - Discharge Dispostion Disposition: HOME Condition at time of disposition: Good - Referrals - Patient Instructions Printed Discharge Instructions: DI for Rabies Vaccine Additional Instructions: Return here as scheduled on the for third vaccine. Keep area clean and dry and observe for infection. - Post Discharge Activity Forms/Work/School Notes: Rabies Vaccination F/U [employer].
== END 2017-10-16 14:05 | disposition home or self-care (01) ==
LOC: JERFT 12:50
PROC: 3E0234Z Introduction of Serum, Toxoid and Vaccine into Muscle, Percutaneous Approach (ICD-10-PCS; principal; 2017-10-16)
DX: Z20.3 Contact with and (suspected) exposure to rabies (principal); W55.01XD Bitten by cat, subsequent encounter
CPT/HCPCS: 90675; 99281-25

== ENCOUNTER 2019-12-27 05:55 | Emergency (ER) | payer OTHER ==
[2019-12-27 06:14] VITALS: TEMP 98.1; BMI 28.9
[2019-12-27] MEDS ORDERED: ONDANSETRON 4 MG/2 ML VIAL IVPUSH ONE (06:17)
[2019-12-27] MEDS ORDERED: ACETAMINOPHEN 1000 MG/100 ML VIAL (NON FORMULARY) IVPB ONE (06:26)
--- NOTE | 2019-12-27 06:30 | PDOC ---
History of Present Illness - General Chief Complaint: Pain Stated Complaint: ABD PAIN Time Seen by Provider: 12/27/19 06:16 History Source: Patient Exam Limitations: No Limitations - History of Present Illness Initial Comments: Pt is a 44 yo F, with PMH of dermoid cyst (2/2 R ovary removal), who is presenting from home with worsening RLQ abdominal pain x2 days. Pt states the pain is "pressure like" worse with movement, associated with nausea and then 2 episodes NBNB vomiting today. Pt states her menstrual cycles have been regular, and denies any vaginal discharge or bleeding. Pt denies any fevers/chills, headache, vision changes, syncope, chest pain, palpitations, SOB, urinary symptoms, diarrhea/constipation, or leg swelling. Allergies: PCN (hives, "throat closing") PCP: Dr. Corry Ng Social: Pt denies any cigarette, alcohol, or drug use. Pt denies any recent travel or sick contacts. Surgical: R dermoid cyst with R ovary removal Family: no relevant history. 12/27/19 06:39 12/27/19 06:43 Past History - Travel History Traveled outside of the country in the last 30 days: No Close contact w/someone who was outside of country & ill: No - Medical History Allergies/Adverse Reactions: Allergies Allergy/AdvReac Type Severity Reaction Status Date / Time Penicillins Allergy Hives Verified 12/27/19 06:13 Home Medications: Ambulatory Orders Lamotrigine [Lamictal -] 300 mg PO DAILY 08/14/16 [place] Carbonate [Eskalith -] 900 mg PO BID 08/14/16 Quetiapine Fumarate [Seroquel -] 400 mg PO HS 08/14/16 Sertraline HCl [Zoloft -] 200 mg PO DAILY 08/14/16 Clindamycin [Cleocin -] 300 mg PO Q6HPO #20 capsule 10/13/17 Doxycycline Hyclate 100 mg PO BID #10 tablet 10/13/17 Ibuprofen [Motrin -] 2 tab PO Q6H #30 tablet 10/13/17 Anemia: No Asthma: Yes Cancer: No Cardiac Disorders: No CVA: No COPD: No CHF: No DVT: No Dementia: No Diabetes: No GI Disorders: No Disorders: No HTN: No Hypercholesterolemia: No Liver Disease: No Psychiatric Problems: Yes (ptsd,bipolar,DID ( DISSOCIATIVE IDENTITY D/O)) Seizures: No Thyroid Disease: No - Surgical History Abdominal Surgery: Yes (tubal ligation,ovary removal and mass) Appendectomy: No Cardiac Surgery: No Cholecystectomy: No Lung Surgery: No Neurologic Surgery: No Orthopedic Surgery: Yes (L WRIST GANGLION CYSTECTOMY) - Immunization History Immunization Up to Date: Yes - Psycho-Social/Smoking History Smoking History: Current some day smoker Have you smoked in the past 12 months: Yes Number of Cigarettes Smoked Daily: 3 If you are a former smoker, when did you quit?: 10/31/13 Information on smoking cessation initiated: No 'Breaking Loose' booklet given: 10/16/17 - Substance Abuse Hx (Audit-C & DAST Scrn) How often the patient has a drink containing alcohol: Never Score: In Men: 4 or > Positive; In Women: 3 or > Positive: 0 Screen Result (Pos requires Nsg. Audit-10AR): Negative In the last yr the pt used illegal drug/Rx for NonMed reason: No Score: Yes response is considered Positive: 0 Screen Result (Positive result requires Nsg. DAST-10): Negative Abd/GI Specific PMHX - Complaint Specific PMHX Colitis: No Diverticulitis: No Gall Bladder Disease: No GERD: No Hepatitis: No Irritable Bowel Synd (IBS): No Pancreatitis: No GI Ulcer Disease: No Review of Systems - Review of Systems Able to Perform ROS?: Yes Is the patient limited Maldivian proficient: No Constitutional: Yes: Weight Stable. No: Chills, Diaphoresis, Fever, Loss of Appetite, Malaise, Weakness HEENTM: No: Recent change in vision, Nose Congestion, Throat Pain, Throat Swelling, Difficulty Swallowing Respiratory: No: Cough, Orthopnea, Shortness of Breath Cardiac (ROS): No: Chest Pain, Edema, Irregular Heart Rate, Lightheadedness, Palpitations, Syncope, Chest Tightness ABD/GI: Yes: See HPI, Abdominal Distended, Nausea, Vomiting. No: Constipated, Diarrhea, Poor Appetite, Poor Fluid Intake, Rectal Bleeding, Abdominal cramping : Yes: See HPI. No: Burning, Dysuria, Discharge, Frequency, Flank Pain, Hematuria, Incontinence, Pain, Urgency Musculoskeletal: No: Back Pain, Muscle Weakness Integumentary: No: Rash Neurological: No: Headache, Numbness, Weakness, Unsteady Gait, Dizziness Psychiatric: No: Sleep Pattern Change, Change in Appetite Endocrine: No: Increased Urine, Change in Weight Hematologic/Lymphatic: No: Anemia, Blood Clots, Easy Bleeding, Easy Bruising All Other Systems: Reviewed and Negative *Physical Exam - Vital Signs Last Vital Signs Temp Pulse Resp BP Pulse Ox 98.1 F 87 20 121/70 100 12/27/19 06:11 12/27/19 06:11 12/27/19 06:11 12/27/19 06:11 12/27/19 06:11 - Physical Exam Vitals stable, pt afebrile. Pt in NAD, normal body habitus. Pt alert and oriented x3. 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 No midline spinal tenderness, step-offs, or crepitus. Head normocephalic, atraumatic. Eyes PERRLA, EOMI. Oropharynx without erythema or exudates, no LAD b/l. No nasal congestion. Hearing intact. Clear heart sounds, S1/S2, no JVD, b/l pedal edema, or heart murmur. Clear lung sounds, no respiratory distress, wheezes, crackles, or accessory muscle use. RLQ abdominal TTP with rebound. Tenderness induced in RLQ with flexion and extension at the hip. No CVA TTP. Skin without jaundice or rash. 12/27/19 06:43 ED Treatment Course - Medications Given in the ED: ED Medications Discontinued Medications Generic Name Dose Route Start Last Admin Trade Name Freq PRN Reason Stop Dose Admin Ondansetron HCl 4 mg 12/27/19 06:17 12/27/19 06:29 Zofran Injection IVPUSH 12/27/19 06:18 4 mg ONCE ONE Administration Medical Decision Making - Medical Decision Making Pt was seen at bedside, also will be seen by attending Dr. Flynn. Pt presenting with RLQ abdominal pain, rebound tenderness, concerning for peritonitis (appendicitis, ectopic ). Pt has had R ovary removed 2/2 dermoid. Provided zofran, ofirmev for improvement of nausea and pain. Will continue to reassess pt and monitor for symptomatic improvement. Labs sent. Pt signed out to day team. 12/27/19 06:44 Discharge - Discharge Information Problems reviewed: Yes Clinical Impression/Diagnosis: RLQ abdominal pain - Follow up/Referral Referrals: Corry Ng MD [Primary Care Provider] - - Patient Discharge Instructions - Post Discharge Activity
[2019-12-27] MEDS ORDERED: ACETAMINOPHEN INJECTION 100 ML IVPB ONE (06:31)
--- NOTE | 2019-12-27 06:35 | PDOC ---
Attending Attestation - Resident Resident Name: Myla Poole - ED Attending Attestation I have performed the following: I have examined & evaluated the patient, The case was reviewed & discussed with the resident, I agree w/resident's findings & plan, Exceptions are as noted - HPI HPI: 44 yo F history dermoid cyst (R ovary removed) presents with RLq pain x2 days. Associated with N/V x2. Poor appetite today. Denies fever/chills, dysuria, hematuria. Currently mid-cycle. - Physicial Exam PE: GENERAL: Awake, alert, and fully oriented, in no acute distress HEAD: No signs of trauma EYES: PERRLA, EOMI, sclera anicteric, conjunctiva clear ENT: Auricles normal inspection, hearing grossly normal, nares patent, oropharynx clear without exudates. Moist mucosa NECK: Normal ROM, supple, no lymphadenopathy, JVD, or masses LUNGS: Breath sounds equal, clear to auscultation bilaterally. No wheezes, and no crackles HEART: Regular rate and rhythm, normal S1 and S2, no murmurs, rubs or gallops ABDOMEN: Soft, +RLQ tenderness, normoactive bowel sounds. +Guarding, no rebound. No masses EXTREMITIES: Normal range of motion, no edema. No clubbing or cyanosis. No cords, erythema, or tenderness NEUROLOGICAL: Cranial nerves II through XII grossly intact. Normal speech, normal gait. Motor and sensation intact SKIN: Warm, dry, normal turgor, no rashes or lesions noted. - Medical Decision Making Pt with RLQ tenderness, r/o appendicitis. Will obtain labs, CT. Discharge - Discharge Information Problems reviewed: Yes Clinical Impression/Diagnosis: RLQ abdominal pain, Eloped from emergency department Condition: Unchanged/Unknown Disposition: ELOPED - Follow up/Referral Referrals: Corry Ng MD [Primary Care Provider] - - Patient Discharge Instructions - Post Discharge Activity
--- NOTE | 2019-12-27 07:03 | PDOC ---
*Physical Exam - Vital Signs Last Vital Signs Temp Pulse Resp BP Pulse Ox 98.1 F 87 20 121/70 100 12/27/19 06:11 12/27/19 06:11 12/27/19 06:11 12/27/19 06:11 12/27/19 06:11 ED Treatment Course - LABORATORY CBC & Chemistry Diagram: 12/27/19 06:10 12/27/19 06:10 - Medications Given in the ED: ED Medications Discontinued Medications Generic Name Dose Route Start Last Admin Trade Name [place] PRN Reason Stop Dose Admin Acetaminophen 1,000 mg 12/27/19 06:26 12/27/19 06:36 Ofirmev Injection - IVPB 12/27/19 06:27 1,000 mg ONCE ONE Administration Ondansetron HCl 4 mg 12/27/19 06:17 12/27/19 06:29 Zofran Injection IVPUSH 12/27/19 06:18 4 mg ONCE ONE Administration Discharge - Discharge Information Clinical Impression/Diagnosis: RLQ abdominal pain - Follow up/Referral Referrals: Corry Ng MD [Primary Care Provider] - - Patient Discharge Instructions - Post Discharge Activity
[2019-12-27 07:13] LABS: EPI CELLS 3 /uL (0-25.1); HYALINE CASTS 1 /uL (0-3.1); URINE APPEARANCE CLEAR; URINE BACTERIA 77 /uL (0-1359); URINE BILIRUBIN NEGATIVE (NEGATIVE); URINE COLOR YELLOW; URINE GLUCOSE (UA) NEGATIVE (NEGATIVE); URINE KETONE NEGATIVE (NEGATIVE); URINE LEUK ESTERASE TRACE (NEGATIVE); URINE NITRITE NEGATIVE (NEGATIVE); URINE PROTEIN NEGATIVE (NEGATIVE); URINE RBC 3 /uL (0-23.9); URINE UROBILINOGEN 0.2 mg/dL (0.2-1.0); URINE WBC 17 /uL (0-25.8)
[2019-12-27 07:16] LABS: BASO % 0.7 % (0-2.0); EOS % 2.7 % (0-4.5); HEMATOCRIT 37.3 % (32.4-45.2); HEMOGLOBIN 12.4 GM/dL (10.7-15.3); LYMPH % 23.8 % (8-40); MCH 30.2 pg (25.7-33.7); MCHC 33.3 g/dl (32.0-36.0); MEAN CELL VOLUME 90.8 fl (80-96); MEAN PLT VOLUME 9.4 fl (7.5-11.1); MONO % 6.6 % (3.8-10.2); NEUT % 66.2 % (42.8-82.8); PLATELET COUNT 187 K/MM3 (134-434); RBC 4.11 M/mm3 (3.60-5.2); RDW 14.1 % (11.6-15.6); WHITE BLOOD COUNT 10.5 K/mm3 (4.0-10.0)
--- NOTE | 2019-12-27 07:17 | PDOC ---
*Physical Exam - Vital Signs Last Vital Signs Temp Pulse Resp BP Pulse Ox 98.1 F 87 20 121/70 100 12/27/19 06:11 12/27/19 06:11 12/27/19 06:11 12/27/19 06:11 12/27/19 06:11 ED Treatment Course - LABORATORY CBC & Chemistry Diagram: 12/27/19 06:10 12/27/19 06:10 - ADDITIONAL ORDERS Additional order review: Laboratory Results 12/27/19 06:10 Urine Color Yellow Urine Appearance Clear Urine pH 5.0 Ur Specific [place] 1.022 Urine Protein Negative Urine Glucose (UA) Negative Urine Ketones Negative Urine Blood Negative Urine Nitrite Negative Urine Bilirubin Negative Urine Urobilinogen 0.2 Ur Leukocyte Esterase Trace Urine WBC (Auto) 17 Urine RBC (Auto) 3 Urine Casts (Auto) 1 U Epithel Cells (Auto) 3 Urine Bacteria (Auto) 77 - Medications Given in the ED: ED Medications Discontinued Medications Generic Name Dose Route Start Last Admin Trade Name Freq PRN Reason Stop Dose Admin Acetaminophen 1,000 mg 12/27/19 06:26 12/27/19 06:36 Ofirmev Injection - IVPB 12/27/19 06:27 1,000 mg ONCE ONE Administration Ondansetron HCl 4 mg 12/27/19 06:17 12/27/19 06:29 Zofran Injection IVPUSH 12/27/19 06:18 4 mg ONCE ONE Administration Medical Decision Making - Medical Decision Making Pt received on s/o from Dr. Poole. 44F hx of dermoid cyst 2/2 R ovary removal, presenting with worsening RLQ abdominal pain x2 days. Associated with vomiting NBNB. Will f/u labs and CT abd for r/u appy. 12/27/19 07:46 Labs reviewed. Laboratory Last Values WBC 10.5 K/mm3 (4.0-10.0) H 12/27/19 06:10 RBC 4.11 M/mm3 (3.60-5.2) 12/27/19 06:10 Hgb 12.4 GM/dL (10.7-15.3) 12/27/19 06:10 Hct 37.3 % (32.4-45.2) 12/27/19 06:10 MCV 90.8 fl (80-96) 12/27/19 06:10 MCH 30.2 pg (25.7-33.7) 12/27/19 06:10 MCHC 33.3 g/dl (32.0-36.0) 12/27/19 06:10 RDW 14.1 % (11.6-15.6) 12/27/19 06:10 Plt Count 187 K/MM3 (134-434) 12/27/19 06:10 MPV 9.4 fl (7.5-11.1) 12/27/19 06:10 Absolute Neuts (auto) 6.9 K/mm3 (1.5-8.0) 12/27/19 06:10 Neutrophils % 66.2 % (42.8-82.8) 12/27/19 06:10 Lymphocytes % 23.8 % (8-40) 12/27/19 06:10 Monocytes % 6.6 % (3.8-10.2) 12/27/19 06:10 Eosinophils % 2.7 % (0-4.5) 12/27/19 06:10 Basophils % 0.7 % (0-2.0) 12/27/19 06:10 Nucleated RBC % 0 % (0-0) 12/27/19 06:10 Sodium 139 mmol/L (136-145) 12/27/19 06:10 Potassium 3.6 mmol/L (3.5-5.1) 12/27/19 06:10 Chloride 108 mmol/L (98-107) H 12/27/19 06:10 Carbon Dioxide 23 mmol/L (21-32) 12/27/19 06:10 Anion Gap 9 MMOL/L (8-16) 12/27/19 06:10 BUN 16.4 mg/dL (7-18) 12/27/19 06:10 Creatinine 1.0 mg/dL (0.55-1.3) 12/27/19 06:10 Est GFR (CKD-EPI)AfAm 80.47 12/27/19 06:10 Est GFR (CKD-EPI)NonAf 69.43 12/27/19 06:10 Random Glucose 132 mg/dL (74-106) H 12/27/19 06:10 Calcium 8.9 mg/dL (8.5-10.1) 12/27/19 06:10 Total Bilirubin 0.1 mg/dL (0.2-1) L 12/27/19 06:10 AST 15 U/L (15-37) 12/27/19 06:10 ALT 22 U/L (13-61) 12/27/19 06:10 Alkaline Phosphatase 57 U/L (45-117) 12/27/19 06:10 Total Protein 6.6 g/dl (6.4-8.2) 12/27/19 06:10 Albumin 3.1 g/dl (3.4-5.0) L 12/27/19 06:10 Lipase 376 U/L (73-393) 12/27/19 06:10 Serum , Qual Negative 12/27/19 06:10 Urine Color Yellow 12/27/19 06:10 Urine Appearance Clear 12/27/19 06:10 Urine pH 5.0 (5.0-8.0) 12/27/19 06:10 Ur Specific [place] 1.022 (1.010-1.035) 12/27/19 06:10 Urine Protein Negative (NEGATIVE) 12/27/19 06:10 Urine Glucose (UA) Negative (NEGATIVE) 12/27/19 06:10 Urine Ketones Negative (NEGATIVE) 12/27/19 06:10 Urine Blood Negative (NEGATIVE) 12/27/19 06:10 Urine Nitrite Negative (NEGATIVE) 12/27/19 06:10 Urine Bilirubin Negative (NEGATIVE) 12/27/19 06:10 Urine Urobilinogen 0.2 mg/dL (0.2-1.0) 12/27/19 06:10 Ur Leukocyte Esterase Trace (NEGATIVE) 12/27/19 06:10 Urine WBC (Auto) 17 /uL (0-25.8) 12/27/19 06:10 Urine RBC (Auto) 3 /uL (0-23.9) 12/27/19 06:10 Urine Casts (Auto) 1 /uL (0-3.1) 12/27/19 06:10 U Epithel Cells (Auto) 3 /uL (0-25.1) 12/27/19 06:10 Urine Bacteria (Auto) 77 /uL (0-1359) 12/27/19 06:10 Urine HCG, Qual Negative 12/27/19 06:10 12/27/19 08:49 CT abd shows mild hepatomegaly/diffuse fatty infiltration of the liver, trace right adenxal fluid suspicious for recent cyst rupture, no evidence of appendicitis or acute intra-abdominal pathology. 12/27/19 12:30 Multiple attempts to locate patient unsuccessful. Per nursing notes, pt left the ER without informing staff and removed IV on her own. Pt contacted by phone. 12/27/19 12:53 TVUS shows simple follicular cyst in the left ovary. Follow up TVUS recommended. Discharge - Discharge Information Problems reviewed: Yes Clinical Impression/Diagnosis: RLQ abdominal pain Disposition: ELOPED - Follow up/Referral Referrals: Corry Ng MD [Primary Care Provider] - - Patient Discharge Instructions - Post Discharge Activity
[2019-12-27 07:28] LABS: ALBUMIN 3.1 g/dl (3.4-5.0); BILIRUBIN,TOTAL 0.1 mg/dL (0.2-1); BLOOD UREA NITROGEN 16.4 mg/dL (7-18); CALCIUM 8.9 mg/dL (8.5-10.1); POTASSIUM 3.6 mmol/L (3.5-5.1); TOT PROT 6.6 g/dl (6.4-8.2)
[2019-12-27 07:30] VITALS: BP 113/78; PULSE 72
[2019-12-27 11:07] LABS: INR 0.93 (0.83-1.09)
== END 2019-12-27 12:58 | disposition left against medical advice (07) ==
LOC: JER 05:55
PROC: 3E033NZ Introduction of Analgesics, Hypnotics, Sedatives into Peripheral Vein, Percutaneous Approach (ICD-10-PCS; principal; 2019-12-27)
PROC: 3E033GC Introduction of Other Therapeutic Substance into Peripheral Vein, Percutaneous Approach (ICD-10-PCS; 2019-12-27)
DX: R10.31 Right lower quadrant pain (principal)
CPT/HCPCS: 36415; 74177-TC; 76830-TC; 80053; 81003; 83690; 84703; 85025; 85610; 85730; 86850; 86900; 86901; 99285-25; J0131; Q9967

== ENCOUNTER 2019-12-28 04:51 | Emergency (ER) | payer OTHER ==
[2019-12-28 04:57] VITALS: BP 111/74; PULSE 77; TEMP 98.6; BMI 28.9
--- NOTE | 2019-12-28 04:59 | PDOC ---
History of Present Illness - General Chief Complaint: Pain Stated Complaint: PAIN Time Seen by Provider: 12/28/19 04:59 History Source: Patient Exam Limitations: No Limitations - History of Present Illness Initial Comments: 12/28/19 05:00 44 yo F with PMHx of dermoid cyst (2/2 R ovary removal), asthma presenting w 2d persistent R suprapubic pain. Took motrin yesterday morning after leaving hospital, woke up at 3am screaming in pain from R suprapubic region. Was evaluated yesterday w same pain, CT showed trace R adnexal fluid, no sign of appendicitis or acute intra-ABD pathology, simple cyst in L ovary on US, pt eloped before imaging resulted. Denies fever, n/v, dysuria/diarrhea/constipation. Past History - Medical History Allergies/Adverse Reactions: Allergies Allergy/AdvReac Type Severity Reaction Status Date / Time Penicillins Allergy Hives Verified 12/28/19 04:57 Home Medications: Ambulatory Orders Lamotrigine [Lamictal -] 300 mg PO DAILY 08/14/16 [place] Carbonate [Eskalith -] 900 mg PO BID 08/14/16 Quetiapine Fumarate [Seroquel -] 400 mg PO HS 08/14/16 Sertraline HCl [Zoloft -] 200 mg PO DAILY 08/14/16 Clindamycin [Cleocin -] 300 mg PO Q6HPO #20 capsule 10/13/17 Doxycycline Hyclate 100 mg PO BID #10 tablet 10/13/17 Ibuprofen [Motrin -] 2 tab PO Q6H #30 tablet 10/13/17 Doxycycline Hyclate 100 mg PO BID 14 Days #28 tablet 12/28/19 metroNIDAZOLE [Flagyl -] 500 mg PO BID 14 Days #28 tablet 12/28/19 Anemia: No Asthma: Yes Cancer: No Cardiac Disorders: No CVA: No COPD: No CHF: No DVT: No Dementia: No Diabetes: No GI Disorders: No Disorders: No HTN: No Hypercholesterolemia: No Liver Disease: No Psychiatric Problems: Yes (ptsd,bipolar,DID ( DISSOCIATIVE IDENTITY D/O)) Seizures: No Thyroid Disease: No - Surgical History Abdominal Surgery: Yes (tubal ligation,ovary removal and mass) Appendectomy: No Cardiac Surgery: No Cholecystectomy: No Lung Surgery: No Neurologic Surgery: No Orthopedic Surgery: Yes (L WRIST GANGLION CYSTECTOMY) - Immunization History Immunization Up to Date: Yes - Psycho-Social/Smoking History Smoking History: Current some day smoker Have you smoked in the past 12 months: Yes Number of Cigarettes Smoked Daily: 3 If you are a former smoker, when did you quit?: 10/31/13 Information on smoking cessation initiated: No 'Breaking Loose' booklet given: 10/16/17 - Substance Abuse Hx (Audit-C & DAST Scrn) How often the patient has a drink containing alcohol: Monthly or less Score: In Men: 4 or > Positive; In Women: 3 or > Positive: 1 Screen Result (Pos requires Nsg. Audit-10AR): Negative In the last yr the pt used illegal drug/Rx for NonMed reason: No Score: Yes response is considered Positive: 0 Screen Result (Positive result requires Nsg. DAST-10): Negative Review of Systems - Review of Systems Constitutional: No: Chills, Fever HEENTM: No: Eye Pain, Ear Discharge Respiratory: No: Cough, Shortness of Breath Cardiac (ROS): No: Chest Pain, Lightheadedness ABD/GI: No: Nausea, Vomiting : No: Burning, Discharge Musculoskeletal: No: Back Pain, Joint Pain Integumentary: No: Bruising, Dryness Neurological: No: Headache, Seizure Psychiatric: No: Anxiety, Depression Endocrine: No: Intolerance to Cold, Intolerance to Heat Hematologic/Lymphatic: No: Anemia, Blood Clots *Physical Exam - Vital Signs Last Vital Signs Temp Pulse Resp BP Pulse Ox 98.6 F 77 20 111/74 98 12/28/19 04:53 12/28/19 04:53 12/28/19 04:53 12/28/19 04:53 12/28/19 04:53 - Physical Exam General Appearance: Yes: Nourished, Appropriately Dressed, Mild Distress HEENT: positive: EOMI, MANAV, Normal Voice, Hearing Grossly Normal. negative: Scleral Icterus (R), Scleral Icterus (L) Respiratory/Chest: positive: Lungs Clear, Normal Breath Sounds. negative: Chest Tender, Respiratory Distress Cardiovascular: positive: Regular Rhythm, Regular Rate, S1, S2. negative: Edema, Murmur Female Pelvic Exam: positive: normal external exam, cervical os closed, normal size ovaries, discharge (yellow/green). negative: CMT, adnexal tenderness, vaginal bleeding Gastrointestinal/Abdominal: positive: Normal Bowel Sounds, Tender (R suprapubi c), Flat, Soft. negative: Organomegaly Musculoskeletal: negative: CVA Tenderness (R), CVA Tenderness (L) Integumentary: positive: Normal Color, Warm Neurologic: positive: Fully Oriented, Alert, Normal Response Medical Decision Making - Medical Decision Making 12/28/19 06:03 pelvic - yellow green discharge in vaginal vault, closed os, no cervical/ovarian motion tenderness --- 44 yo F with PMHx of dermoid cyst (2/2 R ovary removal), asthma presenting w 2d persistent R suprapubic pain concerning for PID with yellow/green discharge in vaginal vault. Low concern for torsion (R ovary removed) vs appy (recent neg CT), Given tylenol, rocephin, doxy, flagyl, DC home w OB f/u, doxy/flagyl prescriptions, supportive care Discharge - Discharge Information Problems reviewed: Yes Clinical Impression/Diagnosis: PID (acute pelvic inflammatory disease) Condition: Improved Disposition: HOME - Additional Discharge Information Prescriptions: Doxycycline Hyclate 100 mg PO BID 14 Days #28 tablet metroNIDAZOLE [Flagyl -] 500 mg PO BID 14 Days #28 tablet - Follow up/Referral Referrals: Corry Ng MD [Primary Care Provider] - - Patient Discharge Instructions Patient Printed Discharge Instructions: DI for Pelvic Inflammatory Disease Additional Instructions: Take the prescribed Doxycycline and Flagyl as directed Take tylenol or ibuprofen for pain Follow up with your OBGYN Dr Nunez - Post Discharge Activity
--- NOTE | 2019-12-28 05:00 | PDOC ---
Attending Attestation - Resident Resident Name: Michael Cruz - ED Attending Attestation I have performed the following: I have examined & evaluated the patient, The case was reviewed & discussed with the resident, I agree w/resident's findings & plan - HPI HPI: 12/28/19 05:41 see resident hpi - Physicial Exam PE: 12/28/19 05:41 see resident exam - Medical Decision Making 12/28/19 05:41 44-year-old female seen here yesterday for right lower quadrant/right pelvic pain with CT scan of the abdomen and pelvis as well as pelvic ultrasound performed with significant finding of a small amount of free fluid in the right lower quadrant with absent right ovary status post oophorectomy secondary to dermoid cyst per previous record It is charted that patient eloped At this time patient has no change in her complaints Will offer a pelvic exam and antibiotics as indicated with 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
[2019-12-28] MEDS ORDERED: ACETAMINOPHEN 500 MG TABLET (FP) PO ONE (05:33)
[2019-12-28] MEDS ORDERED: ACETAMINOPHEN 325 MG TABLET (FP) ONE (05:39)
[2019-12-28] MEDS ORDERED: DOXYCYCLINE HYCLATE 100 MG CAPSULE PO ONE ×2 (05:47→05:56)
[2019-12-28] MEDS ORDERED: metroNIDAZOLE 250 MG TABLET PO ONE (05:48)
[2019-12-28] MEDS ORDERED: metroNIDAZOLE 250 MG TABLET ONE (05:56)
== END 2019-12-28 06:09 | disposition home or self-care (01) ==
LOC: JER 04:51
PROC: 3E0234Z Introduction of Serum, Toxoid and Vaccine into Muscle, Percutaneous Approach (ICD-10-PCS; principal; 2019-12-28)
DX: N73.9 Female pelvic inflammatory disease, unspecified (principal)
CPT/HCPCS: 99284-25

== ENCOUNTER 2021-07-30 11:09 | Emergency (ER) | payer OTHER ==
[2021-07-30 11:26] VITALS: BMI 29.5
[2021-07-30] MEDS ORDERED: ASPIRIN 81 MG CHEWABLE TABLETS PO ONE (12:42)
[2021-07-30] MEDS ORDERED: methylPREDNISolone NA SUCC 125 MG/2 ML VIAL IVPUSH ONE (12:49)
[2021-07-30] MEDS ORDERED: ALBUTEROL SO4 2.5/IPRATROPIUM 0.5 INH SOL 3 ML VIAL.NEB. NEB ONE (13:17)
[2021-07-30] MEDS ORDERED: methylPREDNISolone NA SUCC 125 MG/2 ML VIAL ONE (13:17)
[2021-07-30] MEDS ORDERED: ASPIRIN 81 MG CHEWABLE TABLETS ONE (13:17)
[2021-07-30] MEDS: ALBUTEROL SO4 2.5/IPRATROPIUM 0.5 INH SOL 3 ML VIAL.NEB. NEB SCH ×4 (14:00→15:00)
[2021-07-30 15:36] LABS: BASO % 0.7 % (0-2.0); HEMATOCRIT 39.3 % (32.4-45.2); HEMOGLOBIN 13.3 GM/dL (10.7-15.3); LYMPH % 31.6 % (8-40); MCH 30.5 pg (25.7-33.7); MCHC 33.8 g/dl (32.0-36.0); MEAN CELL VOLUME 90.1 fl (80-96); MEAN PLT VOLUME 9.8 fl (7.5-11.1); MONO % 6.9 % (3.8-10.2); NEUT % 56.8 % (42.8-82.8); PLATELET COUNT 194 10^3/uL (134-434); RBC 4.36 M/mm3 (3.60-5.2); RDW 14.3 % (11.6-15.6); WHITE BLOOD COUNT 8.2 K/mm3 (4.0-10.0)
[2021-07-30 15:51] LABS: ALBUMIN 3.6 g/dl (3.4-5.0); BLOOD UREA NITROGEN 9.9 mg/dL (7-18); MAGNESIUM 2.3 mg/dL (1.8-2.4)
[2021-07-30 15:54] LABS: CREATININE 0.9 mg/dL (0.55-1.3)
[2021-07-30 15:55] LABS: INR 0.97 (0.83-1.09); PROTHROMBIN TIME (PATIENT) 11.2 SEC (9.7-13.0)
[2021-07-30 15:56] LABS: BILIRUBIN,TOTAL 0.2 mg/dL (0.2-1); TOT PROT 7.3 g/dl (6.4-8.2)
[2021-07-30 17:30] VITALS: BP 104/69; PULSE 67; TEMP 98.4
[2021-07-31 12:08] LABS: SARS-CoV-2 NAA Not Detected (Not Detected)
== END 2021-07-30 18:00 | disposition home or self-care (01) ==
LOC: JER 11:09
PROC: 3E0F7GC Introduction of Other Therapeutic Substance into Respiratory Tract, Via Natural or Artificial Opening (ICD-10-PCS; principal; 2021-07-30)
PROC: 3E033GC Introduction of Other Therapeutic Substance into Peripheral Vein, Percutaneous Approach (ICD-10-PCS; 2021-07-30)
DX: M79.10 Myalgia, unspecified site (principal)
CPT/HCPCS: 36415; 71046-TC-FY; 80053; 83735; 84484; 85025; 85610; 85730; 93005; 93010; 94640; 96374; 99285-25; C9803; U0003; U0005

== ENCOUNTER 2022-06-21 12:51 | Emergency (ER) | payer OTHER ==
[2022-06-21 13:06] VITALS: BP 134/68; PULSE 71; RESP 18; TEMP 98.4; BMI 28.0
[2022-06-21] MEDS ORDERED: SODIUM CHLORIDE 0.9% 500 ML INFUS.BAG IV ONE (13:42)
[2022-06-21 15:41] LABS: BASO % 0.8 % (0-2.0); EOS % 3.9 % (0-4.5); HEMATOCRIT 39.5 % (32.4-45.2); HEMOGLOBIN 13.1 GM/dL (10.7-15.3); LYMPH % 23.2 % (8-40); MCH 29.7 pg (25.7-33.7); MEAN PLT VOLUME 9.8 fl (7.5-11.1); MONO % 7.1 % (3.8-10.2); PLATELET COUNT 216 10^3/uL (134-434); RBC 4.39 M/mm3 (3.60-5.2); RDW 14.6 % (11.6-15.6); WHITE BLOOD COUNT 8.7 K/mm3 (4.0-10.0)
[2022-06-21 15:58] LABS: ALBUMIN 3.5 g/dl (3.4-5.0)
[2022-06-21 16:01] LABS: CREATININE 0.8 mg/dL (0.55-1.3)
[2022-06-21 16:02] LABS: BILIRUBIN,TOTAL 0.2 mg/dL (0.2-1)
[2022-06-21 16:03] LABS: BLOOD UREA NITROGEN 10.6 mg/dL (7-18); TOT PROT 7.2 g/dl (6.4-8.2)
[2022-06-21] MEDS ORDERED: MECLIZINE HCL 25 MG TABLET (FP) PO ONE (16:42)
[2022-06-21] MEDS ORDERED: MECLIZINE HCL 25 MG TABLET (FP) ONE (17:12)
== END 2022-06-21 18:00 | disposition home or self-care (01) ==
LOC: JER 12:51
DX: R42 Dizziness and giddiness (principal)
CPT/HCPCS: 0241U-QW; 36415; 70450-TC; 80053; 84484; 84703; 85025; 87077; 87086; 93005; 93010; 99285-25

== ENCOUNTER 2023-04-13 22:33 | Emergency (ER) | payer OTHER ==
[2023-04-13 22:46] VITALS: BP 119/74; PULSE 74; RESP 18; TEMP 97.6; BMI 26.6
[2023-04-13 23:00] LABS: PH,URINE 5.5 (5.0-8.0); URINE APPEARANCE CLEAR; URINE BILIRUBIN NEGATIVE (NEGATIVE); URINE COLOR YELLOW; URINE GLUCOSE (UA) NEGATIVE (NEGATIVE); URINE KETONE TRACE (NEGATIVE); URINE LEUK ESTERASE NEGATIVE (NEGATIVE); URINE NITRITE NEGATIVE (NEGATIVE); URINE PROTEIN NEGATIVE (NEGATIVE); URINE UROBILINOGEN 0.2 mg/dL (0.2-1.0)
[2023-04-13 23:02] LABS: HCG,QUALITATIVE URINE Negative
[2023-04-13] MEDS ORDERED: ACETAMINOPHEN 1000 MG/100 ML BAG IVPB ONE (23:23)
[2023-04-13] MEDS ORDERED: ACETAMINOPHEN INJECTION 100 ML IVPB ONE (23:46)
[2023-04-14 00:09] LABS: BASO % 1.1 % (0-2.0); HEMATOCRIT 39.3 % (32.4-45.2); HEMOGLOBIN 12.8 GM/dL (10.7-15.3); LYMPH % 29.7 % (8-40); MCH 29.5 pg (25.7-33.7); MCHC 32.5 g/dl (32.0-36.0); MEAN CELL VOLUME 90.8 fl (80-96); MEAN PLT VOLUME 9.5 fl (7.5-11.1); MONO % 8.4 % (3.8-10.2); NEUT % 56.8 % (42.8-82.8); PLATELET COUNT 212 10^3/uL (134-434); RBC 4.33 M/mm3 (3.60-5.2); RDW 14.9 % (11.6-15.6); WHITE BLOOD COUNT 10.2 K/mm3 (4.0-10.0)
[2023-04-14 00:35] LABS: ALBUMIN 3.3 g/dl (3.4-5.0); CALCIUM 8.8 mg/dL (8.5-10.1)
[2023-04-14 00:36] LABS: BLOOD UREA NITROGEN 19.9 mg/dL (7-18)
[2023-04-14 00:38] LABS: CREATININE 0.9 mg/dL (0.55-1.3)
[2023-04-14 00:40] LABS: BILIRUBIN,TOTAL 0.2 mg/dL (0.2-1); TOT PROT 7.1 g/dl (6.4-8.2)
== END 2023-04-14 01:54 | disposition home or self-care (01) ==
LOC: JER 22:33
PROC: 3E033NZ Introduction of Analgesics, Hypnotics, Sedatives into Peripheral Vein, Percutaneous Approach (ICD-10-PCS; principal; 2023-04-14)
DX: R10.32 Left lower quadrant pain (principal); N83.202 Unspecified ovarian cyst, left side; R14.0 Abdominal distension (gaseous)
CPT/HCPCS: 36415; 76830-TC; 80053; 81003; 83690; 84703; 85025; 87086; 99284-25

== ENCOUNTER 2024-02-13 00:54 | Emergency (ER) | payer OTHER ==
[2024-02-13 00:59] VITALS: BP 121/85; PULSE 76; RESP 20; TEMP 98.4; BMI 28.8
[2024-02-13] MEDS ORDERED: ALBUTEROL SO4 2.5/IPRATROPIUM 0.5 INH SOL 3 ML VIAL.NEB. NEB ONE (01:29)
[2024-02-13] MEDS: ALBUTEROL SO4 2.5/IPRATROPIUM 0.5 INH SOL 3 ML VIAL.NEB. NEB ONE (01:36)
== END 2024-02-13 02:21 | disposition home or self-care (01) ==
LOC: JER 00:54
PROC: 3E0F7GC Introduction of Other Therapeutic Substance into Respiratory Tract, Via Natural or Artificial Opening (ICD-10-PCS; principal; 2024-02-13)
DX: T59.91XA Toxic effect of unspecified gases, fumes and vapors, accidental (unintentional), initial encounter (principal); J68.3 Other acute and subacute respiratory conditions due to chemicals, gases, fumes and vapors; R06.00 Dyspnea, unspecified
CPT/HCPCS: 99283-25

== ENCOUNTER → 2024-02-21 | Emergency (ER) | payer OTHER ==
[2024-02-21 10:57] VITALS: BP 137/80; PULSE 81; RESP 18; TEMP 98.6; BMI 28.0
== END | disposition left against medical advice (07) ==
LOC: JER 10:50
DX: M79.671 Pain in right foot (principal); M79.672 Pain in left foot; R20.2 Paresthesia of skin
CPT/HCPCS: 99281-25

== ENCOUNTER 2024-05-14 06:59 | Emergency (ER) | payer OTHER ==
[2024-05-14 07:04] VITALS: BP 122/84; RESP 24; TEMP 98.2; BMI 28.8
[2024-05-14] MEDS ORDERED: ALBUTEROL SO4 2.5/IPRATROPIUM 0.5 INH SOL 3 ML VIAL.NEB. NEB ONE ×2 (07:09→07:46)
[2024-05-14] MEDS ORDERED: DEXAMETHASONE 4 MG TABLET (FP) ONE (07:45)
[2024-05-14] MEDS: DEXAMETHASONE 4 MG TABLET (FP) PO ONE (07:57)
[2024-05-14] MEDS: ALBUTEROL SO4 2.5/IPRATROPIUM 0.5 INH SOL 3 ML VIAL.NEB. NEB SCH (07:58)
[2024-05-14 08:08] VITALS: PULSE 70
[2024-05-14] MEDS: ALBUTEROL SO4 HFA INHALER IH ONE (09:01)
[2024-05-14] MEDS ORDERED: ALBUTEROL SO4 HFA INHALER IH ONE (09:01)
== END 2024-05-14 09:24 | disposition home or self-care (01) ==
LOC: JER 06:59
PROC: 3E0F7GC Introduction of Other Therapeutic Substance into Respiratory Tract, Via Natural or Artificial Opening (ICD-10-PCS; principal; 2024-05-14)
DX: J45.21 Mild intermittent asthma with (acute) exacerbation (principal); R06.02 Shortness of breath; Z20.822 Contact with and (suspected) exposure to COVID-19
CPT/HCPCS: 0241U-QW; 99283-25

== ENCOUNTER 2024-11-26 19:32 | Observation (INO) | payer OTHER ==
[2024-11-26] MEDS ORDERED: methylPREDNISolone NA SUCC 125 MG/2 ML VIAL ONE (20:55)
[2024-11-26] MEDS ORDERED: ALBUTEROL SO4 2.5/IPRATROPIUM 0.5 INH SOL 3 ML VIAL.NEB. NEB ONE (20:55)
[2024-11-26 20:57] LABS: ABSOLUTE IMMATURE GRANULOCYTES 0.01 x10^3/uL (0.0-0.031); BASOPHILS # 0.05 x10^3/uL (0.01-0.08); EOSINOPHIL % 6.6 % (0.7-5.8); EOSINOPHILS # 0.37 x10^3/uL (0.04-0.36); HEMATOCRIT 38.8 % (34.1-44.9); HEMOGLOBIN 12.5 g/dL (11.2-15.7); MCHC 32.2 g/dl (32.2-35.5); MEAN CELL VOLUME 91.7 fl (79.4-94.8); MEAN PLT VOLUME 11.1 fl (9.4-12.3); MONOCYTE # 0.57 x10^3/uL (0.24-0.86); MONOCYTE % 10.2 % (4.7-12.5); PLATELET COUNT 199 x10^3/uL (182-369); RDW 13.7 % (12.2-17.1)
[2024-11-26 20:59] LABS: VENOUS BASE EXCESS -0.5 mmol/L (-2-2); VENOUS O2 SATURATION 66.1 % (70-80); VENOUS PCO2 44.7 mmHg (38-52); VENOUS PH 7.367 (7.310-7.410)
[2024-11-26] MEDS: ALBUTEROL SO4 2.5/IPRATROPIUM 0.5 INH SOL 3 ML VIAL.NEB. NEB SCH (21:00)
[2024-11-26 21:03] LABS: INR 0.95 (0.83-1.09); PROTHROMBIN TIME (PATIENT) 10.4 SEC (9.7-13.0)
[2024-11-26] MEDS: methylPREDNISolone NA SUCC 125 MG/2 ML VIAL IVPUSH ONE (21:11)
[2024-11-26 21:19] LABS: POTASSIUM 4.1 mmol/L (3.5-5.1)
[2024-11-26 21:23] LABS: ALBUMIN 3.4 g/dl (3.4-5.0); BLOOD UREA NITROGEN 14.2 mg/dL (7-18); CALCIUM 9.2 mg/dL (8.5-10.1); MAGNESIUM 1.9 mg/dL (1.8-2.4)
[2024-11-26 21:26] LABS: CREATININE 0.9 mg/dL (0.55-1.3)
[2024-11-26 21:27] LABS: BILIRUBIN,TOTAL 0.2 mg/dL (0.2-1)
[2024-11-26] MEDS ORDERED: ACETYLCYSTEINE 20% 200MG/ML 4 ML VIAL *FOR ORAL / INH USE ONLY ONE (21:59)
[2024-11-26 22:11] LABS: PH,URINE 5.5 (5.0-8.0); URINE APPEARANCE CLEAR; URINE BILIRUBIN NEGATIVE (NEGATIVE); URINE COLOR YELLOW; URINE GLUCOSE (UA) NEGATIVE (NEGATIVE); URINE KETONE NEGATIVE (NEGATIVE); URINE LEUK ESTERASE NEGATIVE (NEGATIVE); URINE NITRITE NEGATIVE (NEGATIVE); URINE PROTEIN NEGATIVE (NEGATIVE); URINE UROBILINOGEN 0.2 mg/dL (0.2-1.0)
[2024-11-26 22:13] LABS: HCG,QUALITATIVE URINE Negative
[2024-11-26] MEDS: ACETYLCYSTEINE 20% 200MG/ML 30 ML VIAL *FOR ORAL / INH USE ONLY NEB ONE (22:18)
[2024-11-26] MEDS ORDERED: MAGNESIUM SULFATE IN WATER 2 GM/50 ML IVPB IVPB ONE (22:41)
[2024-11-26] MEDS ORDERED: ACETAMINOPHEN INJECTION 100 ML ONE (22:41)
[2024-11-26] MEDS: ACETAMINOPHEN 1000 MG/100 ML BAG IVPB ONE (22:46)
[2024-11-26] MEDS: SODIUM CHLORIDE 0.9% 500 ML INFUS.BAG IV ONE (22:46)
[2024-11-26] MEDS: MAGNESIUM SULFATE IN WATER 2 GM/50 ML IVPB IVPB ONE (23:00)
[2024-11-26 23:01] LABS: HCV DIAGNOSTIC IN-HOUSE W/RFLX REACTIVE (NONREACTIVE)
[2024-11-26] MEDS ORDERED: ENOXAPARIN NA (PORCINE) 40 MG/0.4 ML DISP.SYRIN SQ ONE (23:31)
[2024-11-26] MEDS: ENOXAPARIN NA (PORCINE) 40 MG/0.4 ML DISP.SYRIN SQ ONE (23:33)
[2024-11-27 01:24] VITALS: RESP 18; BMI 29.9
[2024-11-27] MEDS: SODIUM CHLORIDE 1,000 ML IV SCH (01:29)
[2024-11-27] MEDS: guaiFENesin/D-METHORPHAN HB 10 ML UNIT-DOSE CUPS PO PRN (01:42)
[2024-11-27] MEDS: methylPREDNISolone NA SUCC 40 MG/1 ML VIAL IVPUSH SCH (01:42)
[2024-11-27] MEDS: ALBUTEROL SO4 2.5/IPRATROPIUM 0.5 INH SOL 3 ML VIAL.NEB. NEB SCH (07:53)
[2024-11-27] MEDS: FLUTICASONE PROP 0.05% 16 GM NASAL SPRAY NS SCH (09:28)
[2024-11-27] MEDS: LORATADINE 10 MG TABLET PO SCH (09:29)
[2024-11-27] MEDS: predniSONE 20 MG TABLET (UD) PO SCH ×2 (09:29→21:32)
[2024-11-27 09:37] LABS: HEMATOCRIT 37.2 % (34.1-44.9); HEMOGLOBIN 12.2 g/dL (11.2-15.7); MCHC 32.8 g/dl (32.2-35.5); MEAN CELL VOLUME 90.7 fl (79.4-94.8); MEAN PLT VOLUME 11.5 fl (9.4-12.3); PLATELET COUNT 172 x10^3/uL (182-369); RDW 13.3 % (12.2-17.1)
[2024-11-27] MEDS ORDERED: LITHIUM CARBONATE PO SCH (10:00)
[2024-11-27] MEDS ORDERED: CycloBENZAprine HCL 5 MG TABLET PO SCH (10:00)
[2024-11-27] MEDS ORDERED: lamoTRIgine 100 MG TABLET PO SCH (10:00)
[2024-11-27] MEDS ORDERED: SERTRALINE HCL 50 MG TABLET (FP) PO SCH (10:00)
[2024-11-27 10:12] LABS: POTASSIUM 4.1 mmol/L (3.5-5.1)
[2024-11-27 10:15] LABS: ALBUMIN 3.1 g/dl (3.4-5.0)
[2024-11-27 10:18] LABS: CREATININE 0.9 mg/dL (0.55-1.3)
[2024-11-27 10:19] LABS: BILIRUBIN,TOTAL 0.2 mg/dL (0.2-1); TOT PROT 6.7 g/dl (6.4-8.2)
[2024-11-27] MEDS: BUDESONIDE 0.25 MG/2ML INH SUSP VIAL NEB SCH (11:15)
[2024-11-27] MEDS ORDERED: FLUTICASONE/UMECLIDIN/VILANTER(100-62.5-25 TRELEGY ELLIPTA) INAHLER IH SCH (14:15)
[2024-11-27] MEDS: KETOROLAC TROMETHAMINE 15 MG/ML VIAL IVPUSH PRN (20:31)
[2024-11-27] MEDS: MELATONIN 5 MG TABLETS PO PRN (21:32)
[2024-11-27] MEDS ORDERED: QUEtiapine FUMARATE 100 MG TABLET (FP) PO SCH (22:00)
[2024-11-28] MEDS: ALBUTEROL SO4 2.5/IPRATROPIUM 0.5 INH SOL 3 ML VIAL.NEB. NEB PRN (06:16)
[2024-11-28 08:05] LABS: ABSOLUTE IMMATURE GRANULOCYTES 0.09 x10^3/uL (0.0-0.031); BASOPHILS # 0.01 x10^3/uL (0.01-0.08); HEMATOCRIT 37.6 % (34.1-44.9); HEMOGLOBIN 12.1 g/dL (11.2-15.7); MCHC 32.2 g/dl (32.2-35.5); MEAN CELL VOLUME 91.5 fl (79.4-94.8); MEAN PLT VOLUME 11.7 fl (9.4-12.3); MONOCYTE # 0.61 x10^3/uL (0.24-0.86); MONOCYTE % 3.9 % (4.7-12.5); PLATELET COUNT 188 x10^3/uL (182-369)
[2024-11-28 08:14] VITALS: BP 122/74; PULSE 67; TEMP 97.9
[2024-11-28 08:24] LABS: POTASSIUM 4.3 mmol/L (3.5-5.1)
[2024-11-28 08:30] LABS: ALBUMIN 3.2 g/dl (3.4-5.0); BLOOD UREA NITROGEN 17.1 mg/dL (7-18)
[2024-11-28 08:32] LABS: CALCIUM 8.9 mg/dL (8.5-10.1)
[2024-11-28 08:33] LABS: CREATININE 0.7 mg/dL (0.55-1.3); MAGNESIUM 2.3 mg/dL (1.8-2.4); PHOSPHOROUS 3.7 mg/dL (2.5-4.9)
[2024-11-28 08:34] LABS: BILIRUBIN,TOTAL 0.4 mg/dL (0.2-1)
[2024-11-28] MEDS: ENOXAPARIN NA (PORCINE) 40 MG/0.4 ML DISP.SYRIN SQ SCH (09:44)
[2024-11-28] MEDS: PANTOPRAZOLE 40 MG TABLET PO SCH (09:45)
[2024-11-30 21:05] LABS: HIV INTERPRETATION NEGATIVE (NEGATIVE)
== END 2024-11-28 12:22 | disposition home or self-care (01) ==
LOC: JER 19:32 → JERBED 22:39 → J5S 11-27 00:53
PROVIDERS: ADMIT Hospitalist; ATTEND Internal Medicine
PROC: 3E033NZ Introduction of Analgesics, Hypnotics, Sedatives into Peripheral Vein, Percutaneous Approach (ICD-10-PCS; principal; 2024-11-26)
PROC: 3E0F7GC Introduction of Other Therapeutic Substance into Respiratory Tract, Via Natural or Artificial Opening (ICD-10-PCS; 2024-11-26)
PROC: 3E023GC Introduction of Other Therapeutic Substance into Muscle, Percutaneous Approach (ICD-10-PCS; 2024-11-26)
PROC: 3E0333Z Introduction of Anti-inflammatory into Peripheral Vein, Percutaneous Approach (ICD-10-PCS; 2024-11-26)
PROC: 3E033GC Introduction of Other Therapeutic Substance into Peripheral Vein, Percutaneous Approach (ICD-10-PCS; 2024-11-26)
PROC: 3E0337Z Introduction of Electrolytic and Water Balance Substance into Peripheral Vein, Percutaneous Approach (ICD-10-PCS; 2024-11-26)
DX: J45.901 Unspecified asthma with (acute) exacerbation (principal); F31.9 Bipolar disorder, unspecified; F43.10 Post-traumatic stress disorder, unspecified; F99 Mental disorder, not otherwise specified; Z88.0 Allergy status to penicillin; Z72.0 Tobacco use
CPT/HCPCS: 0241U-QW; 36415; 71045-TC-FY; 80053; 80178; 81003; 82803; 83690; 83735; 84100; 84484; 84703; 85025; 85027; 85610; 85730; 86803; 87077; 87086; 87389; 87522; 87633; 93005; 93010; 94640; 94761; 96361; 96365; 96372; 96375; 96376; 99285-25; G0378